=== PATIENT | male | born 1965 | race Native Hawaiian/Other Pacific Islander ===

== ENCOUNTER → 2019-09-23 | Outpatient (CLI) | payer OTHER ==
[~2019-09-23] MED LIST: CETI10TA17 PO; METO-370 PO
--- NOTE | 2019-09-23 13:35 | Diagnostic Imaging Report ---
INDICATION: Cough and shortness of breath FINDINGS: Abnormal mediastinal contour at the level of the aorticopulmonary window. This may reflect abnormal dilatation of the undivided pulmonary segment and main pulmonary artery. However soft tissue lesion owing to adenopathy or mass not excluded. Assuming the absence of a contraindication postcontrast enhanced chest CT recommended as nonemergent further evaluation. There is no failure pattern. There is no pneumonia. There is no effusion or pneumothorax. IMPRESSION: Abnormal mediastinal contour indeterminate between dilated pulmonary arterial trunk versus underlying mass or adenopathy. Contrast-enhanced chest CT as nonemergent outpatient follow-up recommended. Otherwise negative. Dictated by: Dictated on workstation # [id number]
== END ==
LOC: RAD 10:37
PROVIDERS: ATTEND Family Medicine
DX: R05 Cough (principal); R06.02 Shortness of breath
CPT/HCPCS: 71046

== ENCOUNTER → 2019-10-14 | Outpatient (CLI) | payer OTHER ==
[~2019-10-14] MED LIST changes: +CATHETER FLUSH 10 ML SYR IV PRN; +HOLD METFORMIN - RECEIVED CONTRAST 20 ML VIAL IV SCH; +IOHEXOL 350 MG/ML 100 ML (OMNIPAQUE 350) VIAL IV ONE; +NS 100 ML (IVPB) BAG IV ONE
[2019-10-14 11:08] LABS: BUN/CREATININE RATIO 16; CREATININE SERUM 1.16 MG/DL (0.60-1.30); GFR ESTIMATED > 60
--- NOTE | 2019-10-14 12:03 | Diagnostic Imaging Report ---
EXAMINATION: CT Chest with intravenous contrast. TECHNIQUE: Multiple contiguous axial images were obtained through the chest after the uneventful administration of intravenous contrast. All CT scans use one or more of the following dose optimizing techniques: automated exposure control, MA and/or KvP adjustment based on a patient size and exam type, or iterative reconstruction. HISTORY: ABN CXR COMPARISON: None available. FINDINGS: The radiographic abnormality corresponds to markedly dilated main pulmonary artery. The main pulmonary artery measures 5.6 x 4.7 cm. The lungs are clear without edema or pneumonia. No pleural effusion or pneumothorax. There is mild groundglass in the lingula, likely an inflammatory process. Heart size is normal. No pericardial effusion. Aorta is normal in caliber. There is no axillary or supraclavicular lymphadenopathy. There is no mediastinal lymphadenopathy. Limited views of the upper abdomen are unremarkable. There are no suspicious osseus lesions. IMPRESSION: 1. The radiographic abnormality corresponds to markedly dilated main pulmonary artery, likely representing pulmonary hypertension. 2. Mild groundglass in the lingula is likely inflammatory. Dictated by: Dictated on workstation # [id number]
== END ==
LOC: RAD 10:34
PROVIDERS: ATTEND Family Medicine
DX: R91.8 Other nonspecific abnormal finding of lung field (principal)
CPT/HCPCS: 36415; 71260; 82565; 84520

== ENCOUNTER → 2019-12-24 | Outpatient (CLI) | payer OTHER ==
[~2019-12-24] MED LIST changes: -CATHETER FLUSH 10 ML SYR IV PRN; -HOLD METFORMIN - RECEIVED CONTRAST 20 ML VIAL IV SCH; -IOHEXOL 350 MG/ML 100 ML (OMNIPAQUE 350) VIAL IV ONE; -METO-370 PO; +METO50TA7 PO; -NS 100 ML (IVPB) BAG IV ONE; +RT-ALBUTEROL SULF 2.5 MG/3 ML PRE-MIX VIAL INH ONE
== END ==
LOC: RT 09:18
PROVIDERS: ATTEND Family Medicine
DX: J98.8 Other specified respiratory disorders (principal)
CPT/HCPCS: 94060; 94726; 94729

== ENCOUNTER → 2020-01-26 | Outpatient (CLI) | payer OTHER ==
[~2020-01-26] MED LIST changes: -RT-ALBUTEROL SULF 2.5 MG/3 ML PRE-MIX VIAL INH ONE
--- NOTE | 2020-01-26 11:14 | Diagnostic Imaging Report ---
INDICATION: Rectal pain and swelling. COMPARISON: None available TECHNIQUE: 3 radiographs of right foot dated 01/26/2020 FINDINGS: No acute fracture or dislocation. No destructive osseous process. Mild scattered degenerative changes, greatest involving the 1st MTP joint. Lisfranc joint is well aligned. Moderate sized plantar and tiny posterior calcaneal enthesophytes. Punctate hyperdensities are identified just lateral to the 5th metatarsal head, only seen on the oblique radiograph. Mild diffuse soft tissue swelling of the foot. IMPRESSION: No acute osseous abnormality with mild scattered degenerative changes, greatest involving the 1st ray. Punctate hyperdensities lateral to the 5th metatarsal head seen on the oblique radiograph only. This is of uncertain significance. This may simply be artifactual, though this also relate to tiny foreign bodies or possibly punctate calcifications. Calcaneal enthesophytes. Soft tissue swelling involving the foot. Dictated by: Dictated on workstation # [id number]
== END ==
LOC: RAD 10:15
PROVIDERS: ATTEND Family Medicine
DX: M19.071 Primary osteoarthritis, right ankle and foot (principal); M77.8 Other enthesopathies, not elsewhere classified; K62.89 Other specified diseases of anus and rectum
CPT/HCPCS: 73630

== ENCOUNTER 2020-07-24 02:23 | Emergency (ER) | payer SELFPAY ==
[~2020-07-24] VITALS: Ht 165 cm; Wt 84.5 kg
[2020-07-24] MEDS ORDERED: DILT180C85 (02:42)
[2020-07-24] MEDS ORDERED: MTP100TCR (02:42)
[2020-07-24] MEDS ORDERED: ALBU8TAB (02:42)
[2020-07-24] MEDS ORDERED: HYDR12.56 (02:42)
[2020-07-24] MEDS ORDERED: hydrALAZINE (APESOLINE) 20 MG/ML VIAL IV ONE (03:00)
[2020-07-24 03:09] LABS: BASOPHILS # (AUTO) 0.1 10^3/uL (0.0-0.1); BASOPHILS % (AUTO) 1 % (0-10); EOSINOPHILS # (AUTO) 1.6 10^3/uL (0.0-0.3); EOSINOPHILS % (AUTO) 15 % (0-10); HEMATOCRIT 48 % (40-54); LYMPHOCYTES # (AUTO) 2.6 X 10^3 (1.0-4.0); LYMPHOCYTES % (AUTO) 25 % (12-44); MEAN CORPUSCULAR HEMOGLOBIN 30 PG (25-34); MEAN CORPUSCULAR HGB CONC 36 G/DL (32-36); MEAN CORPUSCULAR VOLUME 85 FL (80-99); MEAN PLATELET VOLUME 9.1 FL (7.4-10.4); MONOCYTES # (AUTO) 0.8 X 10^3 (0.0-1.0); MONOCYTES % (AUTO) 7 % (0-12); NEUTROPHILS # (AUTO) 5.5 X 10^3 (1.8-7.8); NEUTROPHILS % (AUTO) 52 % (42-75); PLATELET COUNT 174 10^3/uL (130-400); WHITE BLOOD COUNT 10.5 10^3/uL (4.3-11.0)
--- NOTE | 2020-07-24 03:19 | ED General ---
General Chief Complaint: Respiratory Problems Stated Complaint: SOB Nursing Triage Note: soa when laying down x1 week. worse tonight. Nursing Sepsis Screen: No Definite Risk Source of Information: Patient Exam Limitations: No Limitations History of Present Illness Date Seen by Provider: Jul 24, 2020 Time Seen by Provider: 02:48 Initial Comments Here with report of shortness of breath that is worse when lying down and better after inhaler. Has history of asthma and high blood pressure. Has had recent addition to his blood pressure medicine and is getting moderate control. Arrives tonight with or significant hypertension and wheezing. Denies contact with COVID patients. Denies sore throat, runny nose or fever but does have cough. Has been using his inhaler in the morning and evening. States that helps a little bit. Denies nausea, vomiting or diarrhea. Timing/Duration: 1 Week, Changing Over Time Severity: Moderate Modifying Factors: improves with Medication (albuterol) Associated Systoms: No Chest Pain; Cough, Fever/Chills; No Nausea/Vomiting; Shortness of Air; No Weakness Allergies and Home Medications Allergies Uncoded Allergies: ENVIRONMENTAL (Allergy, Unknown, 07/24/15) Patient Home Medication List Home Medication List Reviewed: Yes Review of Systems Review of Systems Constitutional: see HPI; No chills, No fever EENTM: no symptoms reported Respiratory: see HPI Cardiovascular: No chest pain, No edema Gastrointestinal: No abdominal pain, No nausea, No vomiting Genitourinary: no symptoms reported Musculoskeletal: no symptoms reported All Other Systems Reviewed Negative Unless Noted: Yes Past Wiyjtgx-Cjdtrl-Dtuxii Hx Past Med/Social Hx: Reviewed Nursing Past Med/Soc Hx Patient Social History Alcohol Use: Denies Use Recreational Drug Use: No Smoking Status: Never a Smoker 2nd Hand Smoke Exposure: No Recent Foreign Travel: No Contact w/Someone Who Travel: No Recent Infectious Disease Expo: No Recent Hopitalizations: No Immunizations Up To Date Tetanus Booster (TDap): Unknown Seasonal Allergies Seasonal Allergies: No Past Medical History Surgeries: No Respiratory: Yes Asthma Cardiac: Yes Atrial Fibrillation, Hypertension Neurological: No Reproductive Disorders: No Sexually Transmitted Disease: No Genitourinary: No Gastrointestinal: No Musculoskeletal: No Endocrine: No HEENT: No Cancer: No Psychosocial: No Integumentary: No Blood Disorders: No Family Medical History Reviewed Nursing Family Hx Physical Exam Vital Signs Vital Signs - First Documented 07/24/20 02:31 Temp 36.2 Pulse 77 Resp 18 B/P (MAP) 194/123 (146) Pulse Ox 97 O2 Delivery Room Air Capillary Refill : Less Than 3 Seconds Height, Weight, BMI Height: 5'4" Weight: 212lbs. oz. 96.383826by; 31.00 BMI Method: General Appearance: No Apparent Distress, WD/WN HEENT: PERRL/EOMI, Pharynx Normal Neck: Non Tender, Supple Respiratory: No Respiratory Distress; No Crackles; Expiration Cardiovascular: Regular Rate, Rhythm, No Murmur Gastrointestinal: Non Tender, Soft Back: Normal Inspection, No CVA Tenderness, No Vertebral Tenderness Extremity: Normal Inspection, Normal Range of Motion, Non Tender, No Calf Tenderness Neurologic/Psychiatric: Alert, Oriented x3 Skin: Normal Color, Warm/Dry Progress/Results/Core Measures Suspected Sepsis Recent Fever Within 48 Hours: No Infection Criteria Present: None New/Unexplained Altered Menta: No Sepsis Screen: No Definite Risk SIRS Temperature: Pulse: 77 Respiratory Rate: 18 Laboratory Tests 07/24/20 02:55: White Blood Count 10.5 Blood Pressure 194 /123 Mean: 146 Laboratory Tests 07/24/20 02:55: Creatinine 1.27, Platelet Count 174, Total Bilirubin 0.8 Results/Orders Lab Results Laboratory Tests Test 07/24/20 02:55 07/24/20 04:56 Range/Units White Blood Count 10.5 4.3-11.0 10^3/uL Red Blood Count 5.63 4.35-5.85 10^6/uL Hemoglobin 17.0 13.3-17.7 G/DL Hematocrit 48 40-54 % Mean Corpuscular Volume 85 80-99 FL Mean Corpuscular Hemoglobin 30 25-34 PG Mean Corpuscular Hemoglobin Concent 36 32-36 G/DL Red Cell Distribution Width 14.1 10.0-14.5 % Platelet Count 174 130-400 10^3/uL Mean Platelet Volume 9.1 7.4-10.4 FL Neutrophils (%) (Auto) 52 42-75 % Lymphocytes (%) (Auto) 25 12-44 % Monocytes (%) (Auto) 7 0-12 % Eosinophils (%) (Auto) 15 H 0-10 % Basophils (%) (Auto) 1 0-10 % Neutrophils # (Auto) 5.5 1.8-7.8 X 10^3 Lymphocytes # (Auto) 2.6 1.0-4.0 X 10^3 Monocytes # (Auto) 0.8 0.0-1.0 X 10^3 Eosinophils # (Auto) 1.6 H 0.0-0.3 10^3/uL Basophils # (Auto) 0.1 0.0-0.1 10^3/uL Sodium Level 137 135-145 MMOL/L Potassium Level 3.3 L 3.6-5.0 MMOL/L Chloride Level 102 98-107 MMOL/L Carbon Dioxide Level 24 21-32 MMOL/L Anion Gap 11 5-14 MMOL/L Blood Urea Nitrogen 19 H 7-18 MG/DL Creatinine 1.27 0.60-1.30 MG/DL Estimat Glomerular Filtration Rate 60 BUN/Creatinine Ratio 15 Glucose Level 87 70-105 MG/DL Calcium Level 9.1 8.5-10.1 MG/DL Corrected Calcium 9.0 8.5-10.1 MG/DL Total Bilirubin 0.8 0.1-1.0 MG/DL Aspartate Amino Transf (AST/SGOT) 28 5-34 U/L Alanine Aminotransferase (ALT/SGPT) 24 0-55 U/L Alkaline Phosphatase 111 40-136 U/L Troponin I 0.054 H 0.041 H <0.028 NG/ML C-Reactive Protein High Sensitivity 0.58 H 0.00-0.50 MG/DL B-Type Natriuretic Peptide 13.6 <100.0 PG/ML Total Protein 8.5 H 6.4-8.2 GM/DL Albumin 4.1 3.2-4.5 GM/DL My Orders Orders - MARYCRUZ ANDERSON MD Ed Iv/Invasive Line Start (07/24/20 02:54) Ekg Tracing (07/24/20 02:54) BNP (07/24/20 02:54) Cbc With Automated Diff (07/24/20 02:54) Comprehensive Metabolic Panel (07/24/20 02:54) Hs C Reactive Protein (07/24/20 02:54) Troponin I (07/24/20 02:54) Chest 1 View, Ap/Pa Only (07/24/20 02:54) Hydralazine Injection (Apresoline Inject (07/24/20 03:00) Ns Iv 500 Ml (Sodium Chloride 0.9%) (07/24/20 03:48) Troponin I (07/24/20 04:41) Medications Given in ED Current Medications Medications Dose Ordered Sig/Verna Route Start Time Stop Time Status Last Admin Dose Admin Hydralazine HCl 10 mg ONCE ONCE IV 07/24/20 03:00 07/24/20 03:01 DC 07/24/20 03:07 10 MG Sodium Chloride 500 ml @ [facility] ONCE .ROUTE 07/24/20 03:48 07/24/20 03:53 DC 07/24/20 03:55 999 MLS/HR Vital Signs/I&O 07/24/20 02:31 Temp 36.2 Pulse 77 Resp 18 B/P (MAP) 194/123 (146) Pulse Ox 97 O2 Delivery Room Air Capillary Refill : Less Than 3 Seconds Blood Pressure Mean: 146 Progress Note : Progress Note Seen and evaluated. IV, labs, EKG and chest x-ray ordered. I did have patient do 2 puffs from his personal albuterol inhaler. He showed his technique on the procedure, which was incorrect. 2 more doses done after teaching and coaching. States this does help. Patient did receive hydralazine 10 mg IV for blood pressure elevated 210/120. Monitor patient. 0400: Blood pressure now better although did dip to 90 systolic. Normal saline 500 mL bolus ordered. Troponin slightly bumped which I believe is related to the hypertensive event. We will recheck at the two-hour julio c. Monitor patient. 0540: Repeat troponin done and is declining. The troponin not significant level but patient does need further workup study which can be done outpatient. He does follow with Dr. Gutierrez. I have instructed him to follow-up on Sunday for recheck and further evaluation and to rediscuss blood pressure. He will monitor and record blood pressure twice daily. Patient did have recent change to stop lisinopril due to coughing. He may need further adjustments. Patient does not have nor has had any chest pain. He feels comfortable going home. Discharged home with return precautions. Patient verbalize understanding instructions and agreement with plan. ECG Initial ECG Impression Date: Jul 24, 2020 Initial ECG Impression Time: 02:58 Initial ECG Rate: 65 Initial ECG Rhythm: Normal Sinus Comment Sinus rhythm with normal axis. No evidence of ST elevation PA. Similar previous. Interpreted by me. Diagnostic Imaging Diagonstic Imaging: Xray Plain Films/CT/US/NM/MRI: chest Comments No acute findings when compared to previous x-ray. Departure Impression Primary Impression: Uncontrolled hypertension Additional Impression: Asthma Qualified Codes: J45.20 - Mild intermittent asthma, uncomplicated Disposition: HOME, SELF-CARE Condition: Improved Departure-Patient Inst. Decision time for Depature: 05:44 Referrals: EMELI GUTIERREZ MD (PCP/Family) Primary Care Physician RIGOBERTO MUNGUIA MD Patient Instructions: High Blood Pressure (DC), Asthma in Adults Add. Discharge Instructions: All discharge instructions reviewed with patient and/or family. Voiced understanding. Use inhaler 2 puffs every 4 hours as needed for shortness of breath or wheezing. Continue home medications as previously prescribed. Follow-up with Dr. Guteirrez for recheck and further evaluation on Sunday. Call his office Sunday morning. You may need further blood pressure medicine adjustments. You should also talk with him about referral to cardiology and or setting up cardiac stress test. Return for worse pain, fever, vomiting, weakness, breathing problems, chest pain, dizziness, sweating or other concerns as needed. You should monitor and record your blood pressure twice daily and take this to your doctor's appointment. Copy Copies To 1: EMELI GUTIERREZ MD, TIMOTHY D MD Jul 24, 2020 03:18
[2020-07-24 03:20] LABS: ALBUMIN 4.1 GM/DL (3.2-4.5); POTASSIUM 3.3 MMOL/L (3.6-5.0)
[2020-07-24 03:21] LABS: CALCIUM 9.1 MG/DL (8.5-10.1)
[2020-07-24 03:22] LABS: TOTAL PROTEIN 8.5 GM/DL (6.4-8.2)
[2020-07-24 03:24] LABS: BILIRUBIN,TOTAL 0.8 MG/DL (0.1-1.0)
[2020-07-24 03:26] LABS: CREATININE SERUM 1.27 MG/DL (0.60-1.30)
[2020-07-24] MEDS ORDERED: NS IV 500 ML 500 ML ONE (03:48)
[2020-07-24 05:47] VITALS: BP 141/84
--- NOTE | 2020-07-24 07:46 | Diagnostic Imaging Report ---
Indication: Dyspnea. Comparison: 09/23/[address] plain film and chest CT 10/14/2019. Discussion: Single portable upright view of the chest was obtained. Pulmonary artery hypertension is again noted. Normal heart size. No consolidation, pleural fluid, or pneumothorax. No osseous abnormality. Impression: 1. No acute cardiopulmonary process Dictated by: Dictated on workstation # [id number]
== END 2020-07-24 05:47 | disposition home or self-care (01) ==
LOC: EDUNIT# 02:23 → ER 02:25
DX: I10 Essential (primary) hypertension (principal); J45.909 Unspecified asthma, uncomplicated
CPT/HCPCS: 36415; 71045; 80053; 83880; 84484; 85025; 86141; 93005

== ENCOUNTER 2021-07-27 17:22 | Emergency (ER) | payer SELFPAY ==
[~2021-07-27 17:22] MED LIST changes: +ALBU8TAB; +DILT180C85; +HYDR12.56; +MTP100TCR
[2021-07-27] MEDS: RT-ALBUTEROL/IPRATROPIUM 3 ML (DUONEB) VIAL INH ONE (18:45)
--- NOTE | 2021-07-27 18:55 | Diagnostic Imaging Report ---
INDICATION: Cough and shortness of breath Frontal chest obtained at 0627 p.m. and compared to 07/24/2020. Heart is mildly enlarged. The thoracic aorta is tortuous and/or ectatic, but appeared similar on the previous study. There is no focal infiltrate or pneumothorax or pleural fluid. IMPRESSION: Cardiomegaly with tortuous and/or ectatic aorta. No focal infiltrate or pneumothorax or pleural fluid. Dictated by: Dictated on workstation # [id number]
[2021-07-27] MEDS: RX-ALBUTEROL NEB 2.5 MG/3 ML PACK #5 IH STA (19:59)
[2021-07-27] MEDS: predniSONE 20 MG TAB PO ONE (19:59)
--- NOTE | 2021-07-27 20:44 | ED Respiratory ---
General Chief Complaint: Respiratory Problems Stated Complaint: SOB, COUGH Source: patient Exam Limitations: no limitations History of Present Illness Date Seen by Provider: Jul 27, 2021 Time Seen by Provider: 18:26 Initial Comments This 55-year-old gentleman with asthma presents to the emergency room with complaints of shortness of breath, chest tightness, and right lateral lower chest wall pain with cough and inspiration. This has been ongoing for about 3 d ays. He denies fever. He has been vaccinated for Covid. He uses a maintenance inhaler twice a day and a rescue albuterol inhaler. He has had to be on steroids multiple times in the past for asthma exacerbations. He is notably hypertensive. Allergies and Home Medications Allergies Uncoded Allergies: ENVIRONMENTAL (Allergy, Unknown, 07/24/15) Patient Home Medication List Home Medication List Reviewed: Yes Albuterol Sulfate (Albuterol Sulfate) 8 Mg Tab.er.12h, (Reported) Entered as Reported by: YUNI ELLSWORTH on 07/24/20241 Diltiazem HCl (Diltiazem 24Hr ER) 180 Mg Cap.er.24h, (Reported) Entered as Reported by: YUNI ELLSWORTH on 07/24/20241 Hydrochlorothiazide (Hydrochlorothiazide) 12.5 Mg Tablet, (Reported) Entered as Reported by: YUNI ELLSWORTH on 07/24/20241 Ipratropium/Albuterol Sulfate (Iprat-Albut 0.5-3(2.5) mg/3 ml) 3 Ml Ampul.neb, 3 ML IH Q4H PRN for SHORTNESS OF BREATH Prescribed by: VICTOR MANUEL WALKER on 07/27/212044 Metoprolol Succinate (Metoprolol Succinate) 100 Mg Tab.er.24h, (Reported) Entered as Reported by: YUNI ELLSWORTH on 07/24/20241 Prednisone (Prednisone) 20 Mg Tab, 40 MG PO DAILY Prescribed by: VICTOR MANUEL WALKER on 07/27/212044 Review of Systems Review of Systems Constitutional: no symptoms reported EENTM: no symptoms reported Respiratory: see HPI Cardiovascular: see HPI Gastrointestinal: no symptoms reported Genitourinary: no symptoms reported Musculoskeletal: no symptoms reported Skin: no symptoms reported Psychiatric/Neurological: No Symptoms Reported Hematologic/Lymphatic: No Symptoms Reported Past Cjwdwtx-Rbbaip-Ynvoix Hx Patient Social History Tobacco Use?: No Use of E-Cig and/or Vaping dev: No Substance use?: No Alcohol Use?: No Immunizations Up To Date Tetanus Booster (TDap): Unknown Seasonal Allergies Seasonal Allergies: No Past Medical History Surgeries: No Respiratory: Yes Asthma Cardiac: Yes Atrial Fibrillation, Hypertension Neurological: No Reproductive Disorders: No Sexually Transmitted Disease: No Genitourinary: No Gastrointestinal: No Musculoskeletal: No Endocrine: No HEENT: No Cancer: No Psychosocial: No Integumentary: No Blood Disorders: No Physical Exam Vital Signs - First Documented 07/27/21 18:23 Temp 36.6 Pulse 82 Resp 20 B/P (MAP) 175/111 (132) Pulse Ox 95 O2 Delivery Room Air Capillary Refill : Height: 5'4" Weight: 212lbs. oz. 96.110437mp; 31.00 BMI Method: General Appearance: WD/WN, no apparent distress HEENT: PERRL/EOMI, normal ENT inspection, pharynx normal Neck: normal inspection Respiratory: no respiratory distress, no accessory muscle use, decreased breath sounds; No crackles; wheezing, other (Right lower lateral chest wall tender to palpation) Cardiovascular: regular rate, rhythm, no edema, no murmur Gastrointestinal: non tender, soft Extremities: normal inspection, no pedal edema Neurologic/Psychiatric: cold roll catcher II-XII nml as tested, no motor/sensory deficits, alert, normal mood/affect, oriented x 3 Skin: normal color, warm/dry; No rash Progress/Results/Core Measures Suspected Sepsis SIRS Temperature: Pulse: Respiratory Rate: Blood Pressure / Mean: Results/Orders Lab Results Laboratory Tests Test 07/27/21 18:35 Range/Units Influenza Type A Antigen NEGATIVE NEGATIVE Influenza Type B Antigen NEGATIVE NEGATIVE My Orders Orders - VICTOR MANUEL SMITH MD Albuterol/Ipra Inhalation Soln (Duoneb I (07/27/21 18:45) Svn Small Volume Nebulizer (07/27/21 18:40) Coronavirus Sars-Cov-2 So 2018 (07/27/21 18:41) Influenza A & B Antigens (07/27/21 18:35) Rx-Albuterol Nebs (Rx-Proventil Nebs) (07/27/21 19:22) Prednisone Tablet (Deltasone Tablet) (07/27/21 19:30) Medications Given in ED Vital Signs/I&O 07/27/21 07/27/21 18:23 21:15 Temp 36.6 36.6 Pulse 82 77 Resp 20 16 B/P (MAP) 175/111 (132) 162/107 Pulse Ox 95 96 O2 Delivery Room Air Room Air Capillary Refill : Progress Note : Progress Note Chest x-ray was unremarkable. Patient noted significant improvement with a DuoNeb treatment. Rapid flu was negative. Covid test is pending. Prednisone was given for treatment of asthma exacerbation. A nebulizer was dispensed along with albuterol vials. See discharge instructions. Diagnostic Imaging Diagonstic Imaging: Xray Plain Films/CT/US/NM/MRI: chest Comments NAME: MARLY PARRA [facility] REC#: [id number] PT STATUS: REG ER : 1965 PHYSICIAN: MONICA CUNHA APRN ADMIT DATE: 07/27/21/ER Signed Date of Exam:07/27/21 CHEST 1 VIEW, AP/PA ONLY INDICATION: Cough and shortness of breath Frontal chest obtained at 0627 p.m. and compared to 07/24/2020. Heart is mildly enlarged. The thoracic aorta is tortuous and/or ectatic, but appeared similar on the previous study. There is no focal infiltrate or pneumothorax or pleural fluid. IMPRESSION: Cardiomegaly with tortuous and/or ectatic aorta. No focal infiltrate or pneumothorax or pleural fluid. Dictated by: Dictated on workstation # [id number] Dict: 07/27/211850 Trans: 07/27/211856 [facility] [id number] Interpreted by: ALFRED PAN MD Electronically signed by: ALFRED PAN MD 07/27/211856 Departure Impression Primary Impression: Asthma exacerbation Qualified Codes: J45.901 - Unspecified asthma with (acute) exacerbation Additional Impressions: Chest wall pain High blood pressure Qualified Codes: I10 - Essential (primary) hypertension Person under investigation for COVID-19 Disposition: 01 HOME, SELF-CARE Condition: Improved Departure-Patient Inst. Decision time for Depature: 20:39 Referrals: EMELI GUTIERREZ MD (PCP/Family) Primary Care Physician Patient Instructions: Asthma in Adults, COVID-19 Overview, High Blood Pressure ED, COVID-19 After You Have Been Vaccinated Add. Discharge Instructions: Your influenza test was negative, but the result of your COVID-19 test will not be available for 24 to 48 hours. The results should hopefully be available tomorrow. If you do not hear from us by end of day tomorrow, feel free to call to obtain the result. Remain in isolation until the results of your COVID-19 test is known. Use prednisone as prescribed to help treat your asthma. This may cause some sleep disturbance so take it early in the day if possible. Also take with food or milk to avoid stomach upset. Continue to use your maintenance inhaler twice a day as previously prescribed. You may use the nebulizer every 4 hours as needed for shortness of air and wheezing. You may alternatively use your albuterol inhaler up to 4 puffs in a 4-hour period of time if your nebulizer machine is not available. Follow-up with your primary care provider soon as possible to reevaluate your asthma and your high blood pressure. Continue taking your medications until then. Please call tomorrow morning to arrange the appointment. Please return to the emergency room if you have worsening symptoms despite following these instructions. The prednisone should help with your chest pain. You may additionally take ibuprofen up to 600 mg every 6 hours and/or Tylenol (acetaminophen) up to 1000 mg every 6 hours as needed for uncontrolled pain. Ibuprofen should only be used for short-term relief of pain and not as a chronic medication. Call with questions or concerns. All discharge instructions reviewed with patient and/or family. Voiced understanding. Scripts Ipratropium/Albuterol Sulfate (Iprat-Albut 0.5-3(2.5) mg/3 ml) 3 Ml Ampul.neb 3 ML IH Q4H PRN for SHORTNESS OF BREATH, #50 EACH Prov: VICTOR MANUEL SMITH MD 07/27/21 Prednisone (Prednisone) 20 Mg Tab 40 MG PO DAILY, #8 TAB 0 Refills Prov: VICTOR MANUEL SMITH MD 07/27/21 Work/School Note: Work Release Form Date Seen in the Emergency Department: Jul 27, 2021 Return to Work: Jul 29, 2021 Other Restrictions Listed Below: May return to work if COVID-19 test is negative. Copy Copies To 1: EMELI GUTIERREZ MD, JOSHUA T MD Jul 27, 2021 20:44
[2021-07-27] MEDS ORDERED: PRD20T PO (20:45)
[2021-07-27] MEDS ORDERED: IPRA3AMP31 IH (20:45)
[2021-07-27 21:15] VITALS: BP 162/107
== END 2021-07-27 21:05 | disposition home or self-care (01) ==
LOC: EDUNIT# 17:22 → ER 17:27
DX: J45.901 Unspecified asthma with (acute) exacerbation (principal); R07.89 Other chest pain; I10 Essential (primary) hypertension; Z20.822 Contact with and (suspected) exposure to COVID-19
CPT/HCPCS: 71045; 87635; 87804

== ENCOUNTER 2022-03-10 20:41 | Emergency (ER) | payer SELFPAY ==
[~2022-03-10] VITALS: Ht 165.1 cm; Wt 95.3 kg
[~2022-03-10 20:41] MED LIST changes: +IPRA3AMP31 IH; +PRD20T PO
--- NOTE | 2022-03-10 23:03 | ED Cardiac General ---
History of Present Illness General Chief Complaint: Cardiac/General Problems Stated Complaint: BP IS HIGH Nursing Triage Note: PT AMBULATORY INTO ER WITH COMPLAINT OF HYPERTENSION, AND PAIN IN LEFT CALF TODAY. PT STATES THAT HE TAKES TWO BLOOD PRESSURE MEDICATIONS OF A MORNING, AND MONITORS HER BLOOD PRESSURE WHEN HE FEELS TIRED. PT STATES THAT IT WAS 160'S TODAY, AND WITH THE PAIN IN THE CALF HE WAS WORRIED ABOUT A BLOOD CLOT. 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 He was given some steroids by Dr. Morales for his foot but have not helped much. He is not having any chest pain shortness of air or exertional dyspnea. He does not follow with a woodworking belt sander. Does not have a history of coronary disease. He says when he was a young child he had to go to [place] to have a surgery for his heart where they went in through his right groin. He does not member what the surgery was. He is not on blood thinners. Allergies and Home Medications Allergies Uncoded Allergies: ENVIRONMENTAL (Allergy, Unknown, 07/24/15) Patient Home Medication List Home Medication List Reviewed: Yes Albuterol Sulfate (Albuterol Sulfate) 8 Mg Tab.er.12h, (Reported) Entered as Reported by: YUNI ELLSWORTH on 07/24/20241 Diltiazem HCl (Diltiazem 24Hr ER) 180 Mg Cap.er.24h, (Reported) Entered as Reported by: YUNI ELLSWORTH on 07/24/20241 Hydrochlorothiazide (Hydrochlorothiazide) 12.5 Mg Tablet, (Reported) Entered as Reported by: YUNI ELLSWORTH on 07/24/20241 Ipratropium/Albuterol Sulfate (Iprat-Albut 0.5-3(2.5) mg/3 ml) 3 Ml Ampul.neb, 3 ML IH Q4H PRN for SHORTNESS OF BREATH Prescribed by: VICTOR MANUEL WALKER on 07/27/212044 Metoprolol Succinate (Metoprolol Succinate) 100 Mg Tab.er.24h, (Reported) Entered as Reported by: YUNI ELLSWORTH on 07/24/20 0242 Prednisone (Prednisone) 20 Mg Tab, 40 MG PO DAILY Prescribed by: VICTOR MANUEL WALKER on 07/27/212044 Review of Systems Review of Systems Constitutional: No chills, No diaphoresis EENTM: No Blurred Vision, No Double Vision Respiratory: Denies Cough, Denies Shortness of Air Cardiovascular: Denies Chest Pain, Denies Lightheadedness Gastrointestinal: Denies Constipated, Denies Diarrhea Genitourinary: Denies Discharge, Denies Drainage Musculoskeletal: see HPI; No back pain; joint pain Skin: No change in color, No rash All Other Systems Reviewed Negative Unless Noted: Yes Past Ekwmntx-Xrqnuy-Odhieo Hx Patient Social History Tobacco Use?: No Use of E-Cig and/or Vaping dev: No Substance use?: No Alcohol Use?: No Pt feels they are or have been: No Immunizations Up To Date Tetanus Booster (TDap): Unknown Influenza Vaccine Up-to-Date: No; Not Current First/Initial COVID19 Vaccinat: FEBRUARY 2021 Second COVID19 Vaccination Conrad: FEBRUARY 2021 Third COVID19 Vaccination Date: FEBRUARY 2021 COVID19 Vaccine Manual Arts Therapist: [place] Seasonal Allergies Seasonal Allergies: No Past Medical History Surgery/Hospitalization HX: MED HX: HTN Surgeries: No Respiratory: Yes Asthma Cardiac: Yes Atrial Fibrillation, Hypertension Neurological: No Reproductive Disorders: No Sexually Transmitted Disease: No Genitourinary: No Gastrointestinal: No Musculoskeletal: No Endocrine: No HEENT: No Cancer: No Psychosocial: No Integumentary: No Blood Disorders: No Physical Exam Vital Signs Vital Signs - First Documented 03/10/22 22:20 Temp 36.8 Pulse 84 Resp 16 B/P (MAP) 188/109 (135) Pulse Ox 98 O2 Delivery Room Air Capillary Refill : Less Than 3 Seconds Height, Weight, BMI Height: 5'4" Weight: 212lbs. oz. 96.295432br; 34.00 BMI Method: General Appearance: No Apparent Distress, WD/WN HEENT: PERRL/EOMI, Pharynx Normal, Moist Mucous Membranes Neck: Full Range of Motion, Normal Inspection Respiratory: Lungs Clear, Normal Breath Sounds, No Accessory Muscle Use, No Respiratory Distress Cardiovascular: Regular Rate, Rhythm, No Edema, Normal Peripheral Pulses Gastrointestinal: Normal Bowel Sounds, No Organomegaly, Non Tender, Soft Extremity: Normal Capillary Refill, Normal Inspection, Normal Range of Motion Neurologic/Psychiatric: Alert, Oriented x3, No Motor/Sensory Deficits, Normal Mood/Affect, machinist mate II-XII Norm as Tested Progress/Results/Core Measures Results/Orders Lab Results Laboratory Tests Test 03/10/22 23:25 03/11/22 02:43 Range/Units White Blood Count 8.7 4.3-11.0 10^3/uL Red Blood Count 5.57 H 4.30-5.52 10^6/uL Hemoglobin 16.3 13.3-17.7 g/dL Hematocrit 49 40-54 % Mean Corpuscular Volume 88 80-99 fL Mean Corpuscular Hemoglobin 29 25-34 pg Mean Corpuscular Hemoglobin Concent 33 32-36 g/dL Red Cell Distribution Width 13.3 10.0-14.5 % Platelet Count 204 130-400 10^3/uL Mean Platelet Volume 8.9 L 9.0-12.2 fL Immature Granulocyte % (Auto) 1 % Neutrophils (%) (Auto) 59 42-75 % Lymphocytes (%) (Auto) 21 12-44 % Monocytes (%) (Auto) 9 0-12 % Eosinophils (%) (Auto) 10 0-10 % Basophils (%) (Auto) 1 0-10 % Neutrophils # (Auto) 5.1 1.8-7.8 10^3/uL Lymphocytes # (Auto) 1.8 1.0-4.0 10^3/uL Monocytes # (Auto) 0.8 0.0-1.0 10^3/uL Eosinophils # (Auto) 0.9 H 0.0-0.3 10^3/uL Basophils # (Auto) 0.1 0.0-0.1 10^3/uL Immature Granulocyte # (Auto) 0.1 0.0-0.1 10^3/uL Prothrombin Time 13.6 12.2-14.7 SEC INR Comment 1.0 0.8-1.4 Activated Partial Thromboplast Time 38 H 24-35 SEC D-Dimer 0.09 0.00-0.49 UG/ML Sodium Level 142 135-145 MMOL/L Potassium Level 3.9 3.6-5.0 MMOL/L Chloride Level 105 98-107 MMOL/L Carbon Dioxide Level 20 L 21-32 MMOL/L Anion Gap 17 H 5-14 MMOL/L Blood Urea Nitrogen 28 H 7-18 MG/DL Creatinine 1.34 H 0.60-1.30 MG/DL Estimat Glomerular Filtration Rate 63 BUN/Creatinine Ratio 21 Glucose Level 114 H 70-105 MG/DL Calcium Level 8.9 8.5-10.1 MG/DL Corrected Calcium 9.2 8.5-10.1 MG/DL Magnesium Level 2.1 1.6-2.4 MG/DL Total Bilirubin 0.5 0.1-1.0 MG/DL Aspartate Amino Transf (AST/SGOT) 26 5-34 U/L Alanine Aminotransferase (ALT/SGPT) 36 0-55 U/L Alkaline Phosphatase 95 40-136 U/L Myoglobin 125.5 H 10.0-92.0 NG/ML Troponin I 0.042 H 0.040 H <0.028 NG/ML B-Type Natriuretic Peptide < 10.0 <100.0 PG/ML Total Protein 7.1 6.4-8.2 GM/DL Albumin 3.6 3.2-4.5 GM/DL My Orders Orders - HAILEY,WILFREDO J Cbc With Automated Diff (03/10/22 22:59) Magnesium (03/10/22 22:59) Chest 1 View, Ap/Pa Only (03/10/22 22:59) Ekg Tracing (03/10/22 22:59) Comprehensive Metabolic Panel (03/10/22 22:59) Myoglobin Serum (03/10/22 22:59) Protime With Inr (03/10/22 22:59) Partial Thromboplastin Time (03/10/22 22:59) O2 (03/10/22 22:59) Monitor-Rhythm Ecg Trace Only (03/10/22 22:59) Ed Iv/Invasive Line Start (03/10/22 22:59) Bnp Min (03/10/22 22:59) Fibrin Degradation Products (03/10/22 23:25) Troponin I [place] (03/10/22 23:25) Labetalol Injection (Normodyne Injection (03/11/22 00:15) Troponin I [place] (03/11/22 03:00) Ketorolac Injection (Toradol Injection) (03/11/22 03:45) Medications Given in ED Vital Signs/I&O 03/10/22 03/11/22 22:20 03:51 Temp 36.8 Pulse 84 65 Resp 16 18 B/P (MAP) 188/109 (135) 160/105 Pulse Ox 98 98 O2 Delivery Room Air Room Air Blood Pressure Mean: 135 Progress Progress Note #1: Time: 23:12 Progress Note I suspect that the patient's use of steroids for his likely plantar fasciitis in his right foot has led to elevated blood pressure in addition to his pain. The left knee is probably hurting because he has been walking funny on his right foot. He says his shoes are old. We have recommended him to a bottom brusher to get orthotics placed. We have also recommended him to get good fitting shoes. His blood pressure has already slipped down to 158/97 while at rest. He is not having any other difficulties but since he is on hydrochlorothiazide we will check some labs. He was also concerned that he might have some pain in his right calf from a DVT. He does not have a history of blood clots. Will obtain a D-dimer. The pain in his calf is probably from his altered gait due to his foot pain. He does not have any other evidence of DVT. Progress Note #2: Time: 00:21 Progress Note The patient is resting quietly when this provider entered the room and states he does not feel any different now than it did before. His troponin is marginally elevated at 0.042. Reviewing the case from 2019 he had a similar incident when he came in for an asthma attack with a troponin of 0.05 but trended down to 0.04. This may be his baseline. Our plan would be to wait 4 hours from the initial troponin, recheck it and if it is going down or staying the same have him follow-up next week with cardiology. If it is going up then we will get him plugged in with a woodworking belt sander in the morning. He is not having any chest pain or shortness of air at this time. His blood pressure has fluctuated around 140- 160 and is now 166/99. We are going to give him some labetalol and observe him. He is okay with this plan. Progress Note #3: Time: 03:25 Progress Note Repeat troponin has not changed. He had a similar incident back in 2020. He is not having any chest pain. His blood pressure is 134/75. We are going to have him follow-up outpatient. Initial ECG Impression Date: March 11, 2022 Initial ECG Impression Time: 00:05 Initial ECG Rate: 66 Initial ECG Rhythm: Normal Sinus Initial ECG Intervals: Normal Initial ECG Impression: Normal Initial ECG Comparisson: Unchanged Comment Normal sinus rhythm with half a block of ST elevation in V2 and V3 of uncertain significance. No clinically relevant ST elevation or depression. The same changes were seen on an EKG from 2020. Diagnostic Imaging Diagonstic Imaging: Xray Plain Films/CT/US/NM/MRI: chest Comments Perhaps a wisp of infiltrate versus atelectasis on the right lower base however otherwise unremarkable looking chest x-ray compared to previous x-ray in 2020. [facility], [place] NAME: MARLY PARRA [facility] REC#: [id number] PT STATUS: DEP ER : 1965 PHYSICIAN: WILFREDO HART MD ADMIT DATE: 03/10/22/ER Signed Date of Exam:03/10/22 CHEST 1 VIEW, AP/PA ONLY HISTORY: Chest pain TECHNIQUE: Frontal view of the chest COMPARISON: 07/27/2021 FINDINGS: Lung volumes are mildly large. There is increased airspace opacity in the right lung base compared to the prior exam. There is no pleural effusion or pneumothorax. The cardiac silhouette is stable in size. IMPRESSION: 1. Mildly increased airspace opacity at the right lung base compared to the prior study. This may be due to atelectasis or infiltrate. Dictated by: Dictated on workstation # [id number] Dict: 03/11/22 0604 Trans: 03/11/22 0959 MARTY [id number] Interpreted by: AMANDA CASTRO MD Electronically signed by: AMANDA CASTRO MD 03/11/22 0959 Reviewed: Reviewed by Me Departure Impression Primary Impression: Accelerated hypertension Additional Impressions: Elevated troponin level not due myocardial infarction Plantar fasciitis of right foot Left knee pain Qualified Codes: M25.562 - Pain in left knee Disposition: 01 HOME, SELF-CARE Condition: Stable Departure-Patient Inst. Decision time for Depature: 03:26 Referrals: JAEL STONE DPM, DANIEL J MD (PCP/Family) Primary Care Physician JAEL JEAN BAPTISTE JR, MD WILDE, CORIN Q DPM Patient Instructions: High Blood Pressure (DC), Troponin Test Add. Discharge Instructions: Continue taking your blood pressure medicines Follow-up with the woodworking belt sander by calling for an appointment in 2 to 4 weeks to help manage your blood pressure and discuss your risk for heart disease. Return to the ER for chest pain, shortness of air or other worrisome symptoms. Tylenol 1000 mg every 8 hours needed for pain in your foot. Ibuprofen 800 mg every 8 hours needed for pain. Follow the exercises listed in the handout for fat plantar fasciitis. Follow-up with a bottom brusher of your choice such as Dr. Stone or Dr Jerez to help manage your right foot pain All discharge instructions reviewed with patient and/or family. Voiced understanding. Copy Copies To 1: JAEL JEAN BAPTISTE JR, MD WELLER, TITUS J March 10, 2022 23:03
[2022-03-10 23:40] LABS: BASOPHILS # (AUTO) 0.1 10^3/uL (0.0-0.1); BASOPHILS % (AUTO) 1 % (0-10); EOSINOPHILS # (AUTO) 0.9 10^3/uL (0.0-0.3); EOSINOPHILS % (AUTO) 10 % (0-10); HEMATOCRIT 49 % (40-54); HEMOGLOBIN 16.3 g/dL (13.3-17.7); LYMPHOCYTES # (AUTO) 1.8 10^3/uL (1.0-4.0); LYMPHOCYTES % (AUTO) 21 % (12-44); MEAN CORPUSCULAR HEMOGLOBIN 29 pg (25-34); MEAN CORPUSCULAR HGB CONC 33 g/dL (32-36); MEAN CORPUSCULAR VOLUME 88 fL (80-99); MEAN PLATELET VOLUME 8.9 fL (9.0-12.2); MONOCYTES # (AUTO) 0.8 10^3/uL (0.0-1.0); MONOCYTES % (AUTO) 9 % (0-12); NEUTROPHILS # (AUTO) 5.1 10^3/uL (1.8-7.8); NEUTROPHILS % (AUTO) 59 % (42-75); PLATELET COUNT 204 10^3/uL (130-400); WHITE BLOOD COUNT 8.7 10^3/uL (4.3-11.0)
[2022-03-10 23:57] LABS: ALBUMIN 3.6 GM/DL (3.2-4.5); BILIRUBIN,TOTAL 0.5 MG/DL (0.1-1.0); CALCIUM 8.9 MG/DL (8.5-10.1); CREATININE SERUM 1.34 MG/DL (0.60-1.30); MAGNESIUM 2.1 MG/DL (1.6-2.4); POTASSIUM 3.9 MMOL/L (3.6-5.0); TOTAL PROTEIN 7.1 GM/DL (6.4-8.2)
[2022-03-11 00:09] LABS: FIBRIN DEGRADATION PRODUCTS 0.09 UG/ML (0.00-0.49); PROTHROMBIN TIME PATIENT 13.6 SEC (12.2-14.7)
[2022-03-11] MEDS ORDERED: LABETALOL HCL 20 MG/4 ML VIAL IV ONE (00:15)
[2022-03-11] MEDS ORDERED: KETOROLAC 30 MG/ML VIAL IVP ONE (03:45)
[2022-03-11 03:51] VITALS: BP 160/105
--- NOTE | 2022-03-11 06:07 | Diagnostic Imaging Report ---
HISTORY: Chest pain TECHNIQUE: Frontal view of the chest COMPARISON: 07/27/2021 FINDINGS: Lung volumes are mildly large. There is increased airspace opacity in the right lung base compared to the prior exam. There is no pleural effusion or pneumothorax. The cardiac silhouette is stable in size. IMPRESSION: 1. Mildly increased airspace opacity at the right lung base compared to the prior study. This may be due to atelectasis or infiltrate. Dictated by: Dictated on workstation # [id number]
== END 2022-03-11 03:54 | disposition home or self-care (01) ==
LOC: EDUNIT# 20:41 → ER 20:44
DX: I10 Essential (primary) hypertension (principal); R77.8 Other specified abnormalities of plasma proteins; M72.2 Plantar fascial fibromatosis; M25.562 Pain in left knee; Z79.899 Other long term (current) drug therapy
CPT/HCPCS: 36415; 71045; 80053; 83735; 83874; 83880; 84484; 85025; 85379; 85610; 85730; 93005; 93041

== ENCOUNTER → 2022-04-26 | Outpatient (CLI) | payer OTHER | LOC: CARD 12:00 | PROVIDERS: ATTEND Nurse Practitioner Family | DX: I28.8 Other diseases of pulmonary vessels (principal); I51.7 Cardiomegaly | CPT/HCPCS: 93306 ==

== ENCOUNTER 2022-05-11 04:28 | Observation (INO) | payer OTHER ==
[~2022-05-11] VITALS: Ht 167.6 cm; Wt 84.0 kg
[2022-05-11] MEDS ORDERED: RT-ALBUTEROL SULF 2.5 MG/3 ML PRE-MIX VIAL INH STA (04:53)
[2022-05-11] MEDS ORDERED: methylPREDNISolone 125 MG (Solu-MEDROL) VIAL IV STA (04:53)
[2022-05-11] MEDS ORDERED: RT-ALBUTEROL/IPRATROPIUM 3 ML (DUONEB) VIAL INH ONE (05:00)
--- NOTE | 2022-05-11 05:00 | ED Respiratory ---
General Chief Complaint: Respiratory Problems Stated Complaint: SOB Nursing Triage Note: pt presents with dry cough and sob that began at 2300 last night. reports he used his inhailers at home without relief of symptoms. denies fever. Source: patient History of Present Illness Date Seen by Provider: May 11, 2022 Time Seen by Provider: 04:42 Initial Comments PT ARRIVES VIA POV--STATES HE HAD TO LEAVE WORK EARLY--WORKS AT [employer] C/O SHORTNESS OF BREATH AND CHEST TIGHTNESS THAT BEGAN AROUND 2300 TONIGHT AT WORK C/O NON-PRODUCTIVE COUGH NO FEVER/SWEATS/CHILLS NO GI SYMPTOMS NO NASAL CONGESTION OR SORE THROAT OR LOSS OF TASTE/SMELL NO HEADACHE NO BODY ACHES NO SWELLING IN LEGS/FEET OR PAIN IN CALVES. PT DOES HAVE CHRONIC PROBLEMS WITH LEFT KNEE PAIN AND SWELLING AND IS WEARING A BRACE ON LEFT KNEE. PT HAS HISTORY OF ASTHMA AND USES SYMBICORT DAILY AND PRO-AIR--HAS NEVER HAD A SPACER PT LAST USED HIS PRO-AIR INHALER 3 HOURS AGO WITHOUT RELIEF NO KNOWN SICK CONTACTS PT HAS HAD COVID-19 VACCINES X 3, LAST ONE IN NOVEMBER 2021 PT IS NON-SMOKER. ALSO HAS HTN, NO OTHER MEDICAL PROBLEMS STATES HE HAS NEVER HAD ANY CARDIAC PROBLEMS, NEVER HAD ANY CARDIAC STRESS TEST OR CARDIAC CATH, NEVER HAD AN IRREGULAR HEART BEAT OR BEEN ON BLOOD THINNERS OR SEEN A AIRPORT LOCATION MANAGER PCP: [facility] Allergies and Home Medications Allergies Uncoded Allergies: ENVIRONMENTAL (Allergy, Unknown, 07/24/15) Patient Home Medication List Albuterol Sulfate (Albuterol Sulfate) 8 Mg Tab.er.12h, (Reported) Entered as Reported by: YUNI ELLSWORTH on 07/24/20241 Diltiazem HCl (Diltiazem 24Hr ER) 180 Mg Cap.er.24h, (Reported) Entered as Reported by: YUNI ELLSWORTH on 07/24/20241 Hydrochlorothiazide (Hydrochlorothiazide) 12.5 Mg Tablet, (Reported) Entered as Reported by: YUNI ELLSWORTH on 07/24/20241 Ipratropium/Albuterol Sulfate (Iprat-Albut 0.5-3(2.5) mg/3 ml) 3 Ml Ampul.neb, 3 ML IH Q4H PRN for SHORTNESS OF BREATH Prescribed by: VICTOR MANUEL WALKER on 07/27/212044 Metoprolol Succinate (Metoprolol Succinate) 100 Mg Tab.er.24h, (Reported) Entered as Reported by: YUNI ELLSWORTH on 07/24/20 024 Prednisone (Prednisone) 20 Mg Tab, 40 MG PO DAILY Prescribed by: VICTOR MANUEL WALKER on 07/27/212044 Review of Systems Review of Systems Constitutional: no symptoms reported EENTM: no symptoms reported Respiratory: see HPI, cough, short of breath, wheezing Cardiovascular: see HPI, chest pain Gastrointestinal: no symptoms reported Genitourinary: no symptoms reported Musculoskeletal: other (ONGOING PROBLEMS WITH LEFT KNEE PAIN AND SWELLING--WEARING A BRACE ON LEFT KNEE) Skin: no symptoms reported Psychiatric/Neurological: No Symptoms Reported Hematologic/Lymphatic: No Symptoms Reported Immunological/Allergic: no symptoms reported Past Vjnkwwx-Ymirsl-Rejmqe Hx Patient Social History Tobacco Use?: No Smoking Status: Never a Smoker Substance use?: No Alcohol Use?: No Immunizations Up To Date Tetanus Booster (TDap): Unknown Influenza Vaccine Up-to-Date: No; Not Current First/Initial COVID19 Vaccinat: unknown date Second COVID19 Vaccination Conrad: unknown date Third COVID19 Vaccination Date: FEBRUARY 2021 Seasonal Allergies Seasonal Allergies: No Past Medical History Surgery/Hospitalization HX: MED HX: HTN Surgeries: No Respiratory: Yes Asthma Cardiac: Yes (BASELINE TROPONIN 0.04-0.05) Hypertension Neurological: No Reproductive Disorders: No Sexually Transmitted Disease: No Genitourinary: No Gastrointestinal: No Musculoskeletal: No Endocrine: No HEENT: No Cancer: No Psychosocial: No Integumentary: No Blood Disorders: No Physical Exam Vital Signs - First Documented Capillary Refill : Height: 5'4" Weight: 212lbs. oz. 96.231300hn; 34.00 BMI Method: General Appearance: WD/WN, other (MILDLY DYSPNEIC, BUT IS SITTING ON EDGE OF BED, LEANING SLIGHTLY FORWARD WITH HANDS ON EDGE OF BED) HEENT: PERRL/EOMI, normal ENT inspection, TMs normal, pharynx normal Neck: normal inspection Respiratory: wheezing (TIGHT WHEEZING IN ALL LUNG MAIER. ) Cardiovascular: regular rate, rhythm, no edema, no JVD, no murmur Gastrointestinal: soft Extremities: no pedal edema, no calf tenderness, normal capillary refill, other (LEFT KNEE WITH SWELLING AND IS IN A VELCRO KNEE BRACE. NO SWELLING BELOW THE LEVEL OF THE BRACE. ) Neurologic/Psychiatric: crane hooker II-XII nml as tested, no motor/sensory deficits, alert, normal mood/affect, oriented x 3 Skin: normal color (PT IS DARK SKINNED), warm/dry Progress/Results/Core Measures Suspected Sepsis SIRS Temperature: Pulse: 102 Respiratory Rate: 20 Laboratory Tests 05/11/22 04:56: White Blood Count 8.7 Blood Pressure 169 /122 Mean: 138 Laboratory Tests 05/11/22 04:56: Creatinine 1.41H, INR Comment 1.1, Platelet Count 189, Total Bilirubin 0.5 Results/Orders Lab Results Laboratory Tests Test 05/11/22 04:50 05/11/22 04:56 Range/Units Influenza Type A (RT-PCR) Not Detected Not Detecte Influenza Type B (RT-PCR) Not Detected Not Detecte SARS-CoV-2 RNA (RT-PCR) Not Detected Not Detecte White Blood Count 8.7 4.3-11.0 10^3/uL Red Blood Count 5.27 4.30-5.52 10^6/uL Hemoglobin 15.7 13.3-17.7 g/dL Hematocrit 46 40-54 % Mean Corpuscular Volume 86 80-99 fL Mean Corpuscular Hemoglobin 30 25-34 pg Mean Corpuscular Hemoglobin Concent 35 32-36 g/dL Red Cell Distribution Width 13.0 10.0-14.5 % Platelet Count 189 130-400 10^3/uL Mean Platelet Volume 8.5 L 9.0-12.2 fL Immature Granulocyte % (Auto) 1 % Neutrophils (%) (Auto) 60 42-75 % Lymphocytes (%) (Auto) 21 12-44 % Monocytes (%) (Auto) 6 0-12 % Eosinophils (%) (Auto) 12 H 0-10 % Basophils (%) (Auto) 1 0-10 % Neutrophils # (Auto) 5.2 1.8-7.8 10^3/uL Lymphocytes # (Auto) 1.8 1.0-4.0 10^3/uL Monocytes # (Auto) 0.5 0.0-1.0 10^3/uL Eosinophils # (Auto) 1.1 H 0.0-0.3 10^3/uL Basophils # (Auto) 0.1 0.0-0.1 10^3/uL Immature Granulocyte # (Auto) 0.0 0.0-0.1 10^3/uL Erythrocyte Sedimentation Rate 39 H 0-30 MM/HR Prothrombin Time 14.4 12.2-14.7 SEC INR Comment 1.1 0.8-1.4 Activated Partial Thromboplast Time 41 H 24-35 SEC D-Dimer 0.42 0.00-0.49 UG/ML Sodium Level 142 135-145 MMOL/L Potassium Level 3.4 L 3.6-5.0 MMOL/L Chloride Level 104 98-107 MMOL/L Carbon Dioxide Level 23 21-32 MMOL/L Anion Gap 15 H 5-14 MMOL/L Blood Urea Nitrogen 29 H 7-18 MG/DL Creatinine 1.41 H 0.60-1.30 MG/DL Estimat Glomerular Filtration Rate 59 BUN/Creatinine Ratio 21 Glucose Level 141 H 70-105 MG/DL Calcium Level 9.5 8.5-10.1 MG/DL Corrected Calcium 9.5 8.5-10.1 MG/DL Magnesium Level 1.7 1.6-2.4 MG/DL Total Bilirubin 0.5 0.1-1.0 MG/DL Aspartate Amino Transf (AST/SGOT) 24 5-34 U/L Alanine Aminotransferase (ALT/SGPT) 34 0-55 U/L Alkaline Phosphatase 103 40-136 U/L Total Creatine Kinase 304 H 30-200 U/L Creatine Kinase MB 11.5 *H <6.6 NG/ML Myoglobin 148.3 H 10.0-92.0 NG/ML Troponin I 0.043 H <0.028 NG/ML C-Reactive Protein High Sensitivity 2.89 H 0.00-0.50 MG/DL B-Type Natriuretic Peptide < 10.0 <100.0 PG/ML Total Protein 8.2 6.4-8.2 GM/DL Albumin 4.0 3.2-4.5 GM/DL Procalcitonin 0.09 <0.10 NG/ML My Orders Orders - ASPEN ANDERSON DO Cbc With Automated Diff (05/11/22 04:41) Comprehensive Metabolic Panel (05/11/22 04:41) Fibrin Degradation Products (05/11/22 04:41) Procalcitonin (Pct) (05/11/22 04:41) Hs C Reactive Protein (7/7/22 04:41) Erythrocyte Sedimentation Rate (05/11/22 04:41) Ekg Tracing (05/11/22 04:41) Chest 1 View, Ap/Pa Only (05/11/22 04:41) Covid 19 Inhouse Test (05/11/22 04:41) O2 (05/11/22 04:41) Monitor-Rhythm Ecg Trace Only (05/11/22 04:41) Bnp [place] (05/11/22 04:41) Creatine Kinase (05/11/22 04:41) Creatine Kinase Mb (05/11/22 04:41) Magnesium (05/11/22 04:41) Protime With Inr (05/11/22 04:41) Partial Thromboplastin Time (05/11/22 04:41) Myoglobin Serum (05/11/22 04:41) Troponin I Min (05/11/22 04:41) Influenza A And B By Pcr (05/11/22 04:41) Isolation Central Supply Req (05/11/22 04:41) Albuterol Pre-Mix Nebs (Rt) (Proventil (05/11/22 04:53) Albuterol/Ipra Inhalation Soln (Duoneb I (05/11/22 05:00) Dexamethasone Injection (Decadron Injec (05/11/22 05:00) Rt Request For Service (05/11/22 04:53) Methylprednisolone Sod Succ (Solu-Medrol (05/11/22 04:53) Svn Small Volume Nebulizer (05/11/22 04:53) Svn Small Volume Nebulizer (05/11/22 04:53) Medications Given in ED Current Medications Medications Dose Ordered Sig/Verna Route Start Time Stop Time Status Last Admin Dose Admin Albuterol/ Ipratropium 3 ml ONCE ONCE INH 05/11/22 05:00 05/11/22 05:01 DC 05/11/22 05:01 3 ML Dexamethasone Sodium Phosphate 20 mg ONCE ONCE IH 05/11/22 05:00 05/11/22 05:01 DC 05/11/22 05:01 20 MG Vital Signs/I&O 05/11/22 05/11/22 05/11/22 05/11/22 04:44 04:44 04:44 06:32 Pulse 102 104 Resp 20 18 B/P (MAP) 169/122 (138) 129/86 Pulse Ox 98 98 94 O2 Delivery Room Air Room Air Room Air Room Air Capillary Refill : Blood Pressure Mean: 138 Progress Note : Progress Note PPE WORN COVID AND FLU TESTING DONE GIVEN NEB TREATMENTS AND IV STEROIDS WITH IMPROVEMENT IN SYMPTOMS 02 SATS 95% ON ROOM AIR AFTER NEB TREATMENT. ON REVIEW OF PREVIOUS LAB, TROPONIN HAS BEEN PERSISTENTLY ELEVATED TO 0.04-0.05. PT STATES HE HAS NEVER HAD ANY PROBLEMS WITH HIS HEART OR SEEN A AIRPORT LOCATION MANAGER ECG Initial ECG Impression Date: May 11, 2022 Initial ECG Impression Time: 04:50 Initial ECG Rate: 90 Initial ECG Rhythm: Normal Sinus Diagnostic Imaging Comments CXR--PER RADIOLOGIST REPORT AT 0549 Findings: No focal airspace disease in the visualized lungs. Please note that the posterior lower lobes are poorly evaluated by portable radiography. No pleural effusion or pneumothorax. Normal cardiomediastinal silhouette. Impression: 1. No acute cardiopulmonary process by portable radiography. Reviewed: Reviewed by Oh Departure Communication (Admissions) 0615--SPOKE WITH DR. DUMONT, ACCEPTS PT FOR ADMIT. WILL CONSULT CARDIOLOGY REGARDING HTN AND ELEVATED CARDIAC ENZYMES Impression Primary Impression: Asthma exacerbation Additional Impressions: Hypertension Elevation of cardiac enzymes Renal insufficiency Disposition: ADMITTED INPATIENT Condition: Improved Admissions Decision to Admit Reason: Admit from ER (General) Decision to Admit/Date: May 11, 2022 Time/Decision to Admit Time: 06:15 Departure-Patient Inst. Referrals: [facility] (PCP) Primary Care Physician CY ALONZO APRN (Family) Primary Care Physician ASPEN ANDERSON DO May 11, 2022 05:00
[2022-05-11 05:04] LABS: BASOPHILS # (AUTO) 0.1 10^3/uL (0.0-0.1); BASOPHILS % (AUTO) 1 % (0-10); EOSINOPHILS # (AUTO) 1.1 10^3/uL (0.0-0.3); EOSINOPHILS % (AUTO) 12 % (0-10); HEMATOCRIT 46 % (40-54); HEMOGLOBIN 15.7 g/dL (13.3-17.7); LYMPHOCYTES # (AUTO) 1.8 10^3/uL (1.0-4.0); LYMPHOCYTES % (AUTO) 21 % (12-44); MEAN CORPUSCULAR HEMOGLOBIN 30 pg (25-34); MEAN CORPUSCULAR HGB CONC 35 g/dL (32-36); MEAN CORPUSCULAR VOLUME 86 fL (80-99); MEAN PLATELET VOLUME 8.5 fL (9.0-12.2); MONOCYTES # (AUTO) 0.5 10^3/uL (0.0-1.0); MONOCYTES % (AUTO) 6 % (0-12); NEUTROPHILS # (AUTO) 5.2 10^3/uL (1.8-7.8); NEUTROPHILS % (AUTO) 60 % (42-75); PLATELET COUNT 189 10^3/uL (130-400); WHITE BLOOD COUNT 8.7 10^3/uL (4.3-11.0)
[2022-05-11 05:12] LABS: POTASSIUM 3.4 MMOL/L (3.6-5.0)
[2022-05-11 05:13] LABS: CALCIUM 9.5 MG/DL (8.5-10.1)
[2022-05-11 05:14] LABS: TOTAL PROTEIN 8.2 GM/DL (6.4-8.2)
[2022-05-11 05:16] LABS: BILIRUBIN,TOTAL 0.5 MG/DL (0.1-1.0)
[2022-05-11 05:17] LABS: FIBRIN DEGRADATION PRODUCTS 0.42 UG/ML (0.00-0.49); INR 1.1 (0.8-1.4); PROTHROMBIN TIME PATIENT 14.4 SEC (12.2-14.7)
[2022-05-11 05:18] LABS: CREATININE SERUM 1.41 MG/DL (0.60-1.30)
[2022-05-11 05:20] LABS: MAGNESIUM 1.7 MG/DL (1.6-2.4)
[2022-05-11 05:32] LABS: ERYTHROCYTE SEDIMENTATION RATE 39 MM/HR (0-30)
[2022-05-11 05:33] LABS: CREATINE KINASE MB 11.5 NG/ML (<6.6)
--- NOTE | 2022-05-11 05:48 | Diagnostic Imaging Report ---
CHEST 1 VIEW, AP/PA ONLY Indication: Dyspnea Comparison: 03/10/2022 Findings: No focal airspace disease in the visualized lungs. Please note that the posterior lower lobes are poorly evaluated by portable radiography. No pleural effusion or pneumothorax. Normal cardiomediastinal silhouette. Impression: 1. No acute cardiopulmonary process by portable radiography. Dictated by: Dictated on workstation # [id number]
[2022-05-11 07:42] VITALS: BP 143/86
--- NOTE | 2022-05-11 08:41 | Consultation-Cardiology ---
HPI-Cardiology Cardiology Consultation: Date of Consultation 05/11/22 Time Seen by a Provider: 08:10 Date of Admission 05-10-22 Attending Physician [place] Admitting Physician Admitting Physician: Sharri Solorio MD Attending Physician: Sharri Solorio MD Consulting Physician Davion Simon MD HPI: Chief Complaint: Progressive dyspnea Chest discomfort Mr. Davis is a 56 yr old male admitted to 507 from the ED with c/o increasing dyspnea over the last couple days. He reports he went to work last night and his dyspnea became progressively worse with associated chest tightness and dizziness. No c/o diaphoresis or palpitations. He states he used his inhalers given to him by his PCP, however they did not provide any relief. He denies any syncope or near syncope. He denies any LE swelling. He reports his SOB was worse with exertion, however that has also resolved as of this morning. He reports his symptoms have been relieved with steroids and nebulizer treatments. He denies any n/v/d. He denies any fever or chills. Review of Systems-Cardiology Review of Systems Constitutional: No chills, No fever, No malaise Eyes: No vision change Ears/Nose/Throat: No epistaxis, No recent hearing loss Respiratory: As described under HPI Cardiovascular: As described under HPI Gastrointestinal: No constipation, No diarrhea, No nausea, No vomiting Genitourinary: No hematuria Musculoskeletal: joint pain (chronic) Skin: No rash on exposed areas, No ulcerations on exposed areas Psychiatric/Neurological: No anxiety, No depression, No seizure, No focal weakness, No syncope Hematologic: No bleeding abnormalities UWK-Cibgyv-Kdapsy Hx Patient Social History Smoking Status: Never a Smoker 2nd Hand Smoke Exposure: No Have you traveled recently?: No Alcohol Use?: No Pt feels they are or have been: No Immunizations Up To Date Tetanus Booster (TDap): Unknown Past Medical History PMH As described under Assessment. Family Medical History Family Medical History: He reports his mother had "heart trouble" and in her early 40's. He does not know the details. Allergies and Home Medications Allergies Uncoded Allergies: ENVIRONMENTAL (Allergy, Unknown, 07/24/15) Patient Home Medication List Acetaminophen (Tylenol Arthritis) 650 Mg Tablet.er, 1,300 MG PO Q6H PRN for P AIN-MILD (1-4), (Reported) Entered as Reported by: WILLIE BRADSHAW on 05/11/221539 Last Action: Held Albuterol Sulfate (Proair Hfa) 1 Puff Puff, 2 PUFF IH Q4H PRN for SHORTNESS OF BREATH, (Reported) Entered as Reported by: WILLIE BRADSHAW on 05/11/221539 Last Action: Held Budesonide/Formoterol Fumarate (Symbicort 160-4.5 Mcg Inhaler) 160 Mcg-4.5 Mcg/Actuation Hfa.aer.ad, 2 PUFF IH BID, (Reported) Entered as Reported by: WILLIE BRADSHAW on 05/11/221539 Last Action: Held Losartan/Hydrochlorothiazide (Losartan-Hctz 100-25 mg Tab) 100 Mg-25 Mg Tablet, 1 EACH PO DAILY, (Reported) Entered as Reported by: WILLIE BRADSHAW on 05/11/221539 Last Action: Converted Discontinued Medications Albuterol Sulfate (Albuterol Sulfate) 8 Mg Tab.er.12h, (Reported) Discontinued Reason: No Longer Taking Entered as Reported by: YUNI ELLSWORTH on 07/24/20241 Last Action: Discontinued Diltiazem HCl (Diltiazem 24Hr ER) 180 Mg Cap.er.24h, (Reported) Discontinued Reason: No Longer Taking Entered as Reported by: YUNI ELLSWORTH on 07/24/20241 Last Action: Discontinued Hydrochlorothiazide (Hydrochlorothiazide) 12.5 Mg Tablet, (Reported) Discontinued Reason: No Longer Taking Entered as Reported by: YUNI ELLSWORTH on 07/24/20241 Last Action: Discontinued Ipratropium/Albuterol Sulfate (Iprat-Albut 0.5-3(2.5) mg/3 ml) 3 Ml Ampul.neb, 3 ML IH Q4H PRN for SHORTNESS OF BREATH Discontinued Reason: No Longer Taking Prescribed by: VICTOR MANUEL WALKER on 07/27/212044 Last Action: Discontinued Metoprolol Succinate (Metoprolol Succinate) 100 Mg Tab.er.24h, (Reported) Discontinued Reason: No Longer Taking Entered as Reported by: YUNI ELLSWORTH on 07/24/20241 Last Action: Discontinued Prednisone (Prednisone) 20 Mg Tab, 40 MG PO DAILY Discontinued Reason: No Longer Taking Prescribed by: VICTOR MANUEL WALKER on 07/27/212044 Last Action: Discontinued Physical Exam-Cardiology Physical Exam Vital Signs/I&O 05/11/22 05/12/22 05/12/22 05/12/22 23:32 00:00 00:00 01:00 Temp 36.8 Pulse 126 70 Resp 24 B/P (MAP) 142/78 (99) Pulse Ox 96 93 O2 Delivery Room Air Room Air 05/12/22 05/12/22 05/12/22 05/12/22 04:00 04:00 07:00 07:47 Temp 36.5 36.4 Pulse 74 86 82 Resp 16 16 B/P (MAP) 144/84 (104) 134/89 (102) Pulse Ox 95 95 O2 Delivery Room Air Room Air 05/12/22 08:13 Pulse Ox 95 O2 Delivery Room Air 05/12/22 00:00 Intake Total 1300 ml Output Total 600 ml Balance 700 ml Capillary Refill : Constitutional: AAO x 3, well-developed, well-nourished HEENT: PERRL, hearing is well preserved, oral hygience is good Neck: No carotid bruit; carotid pulses are 2 + bilaterally Respiratory: No accessory muscle use, No respiratory distress; chest expansion is symmetric, chest is bilaterally symmetric, lungs clear to auscultation Cardiovascular: regular rate-rhythm; No JVD; S1 and S2 Gastrointestinal: No tender; soft, round, audible bowel sounds Extremities: no lower extremity edema bilateral Neurologic/Psychiatric: grossly intact (moves all extremities) Skin: No rash on exposed areas, No ulcerations on exposed areas Data Review Labs Laboratory Tests 05/11/22 12:10: Troponin I 0.044H 05/12/22 05:30: White Blood Count 14.6H, Red Blood Count 4.93, Hemoglobin 14.6, Hematocrit 43, Mean Corpuscular Volume 87, Mean Corpuscular Hemoglobin 30, Mean Corpuscular Hemoglobin Concent 34, Red Cell Distribution Width 13.1, Platelet Count 198, Mean Platelet Volume 9.2, Immature Granulocyte % (Auto) 1, Neutrophils (%) (Auto) 91H, Lymphocytes (%) (Auto) 6L, Monocytes (%) (Auto) 2, Eosinophils (%) (Auto) 0, Basophils (%) (Auto) 0, Neutrophils # (Auto) 13.3H, Lymphocytes # (Auto) 0.9L, Monocytes # (Auto) 0.3, Eosinophils # (Auto) 0.0, Basophils # (Auto) 0.0, Immature Granulocyte # (Auto) 0.1, Neutrophils % (Manual) 91, Lymphocytes % (Manual) 6, Monocytes % (Manual) 1, Band Neutrophils 2, Blood M orphology Comment NORMAL, Sodium Level 139, Potassium Level 3.7, Chloride Level 104, Carbon Dioxide Level 20L, Anion Gap 15H, Blood Urea Nitrogen 30H, Creatinine 1.28, Estimat Glomerular Filtration Rate 67, BUN/Creatinine Ratio 23, Glucose Level 147H, Calcium Level 9.5, Magnesium Level 1.8 Radiology NAME: MARLY DAVIS [facility] REC#: [id number] PT STATUS: REG ER : 1965 PHYSICIAN: ASPEN ANDERSON DO ADMIT DATE: 05/11/22/ER Signed Date of Exam:05/11/22 CHEST 1 VIEW, AP/PA ONLY CHEST 1 VIEW, AP/PA ONLY Indication: Dyspnea Comparison: 03/10/2022 Findings: No focal airspace disease in the visualized lungs. Please note that the posterior lower lobes are poorly evaluated by portable radiography. No pleural effusion or pneumothorax. Normal cardiomediastinal silhouette. Impression: 1. No acute cardiopulmonary process by portable radiography. Dictated by: Dictated on workstation # [id number] Dict: 05/11/22 0546 Trans: 05/11/22 0546 [facility] [id number] Interpreted by: AMY FORD MD Electronically signed by: AMY FORD MD 05/11/22 0546 ECG Impression ECG Initial ECG Rhythm: Normal Sinus A/P-Cardiology Assessment/Admission Diagnosis Progressive KELLY Chest discomfort - undetermined etiology - minimally elevated troponin (chronically minimal elevation since Jul 2020) Echocardiogram of 04-26-[address] Medina showed LVEF 55-690%. PASP 35-40 mmHg H/O asthma HTN - maintained on Losartan/HCTZ Arthritis Discussion and Recomendations Progressive KELLY with non-specific chest discomfort of undetermined etiology Chronic minimal troponin elevation since 2019 Advise MPI to eval perfusion Management of ? asthma exacerbation per medical services Stop Losartan d/t CKD 2 Start BB Hypokalemia likely d/t chronic diuretic use (HCTZ) - advise cessation of HCTZ d/t normal LVEF on recent echocardiogram and no evidence of swelling Replace electrolytes Monitor lab closely Further recs will be based on his hospital course We would like to thank Dr. Solorio for this consult NORRIS TYSON May 11, 2022 08:41
[2022-05-11] MEDS ORDERED: REGADENOSON 0.4 MG/5 ML SYR (LEXISCAN) IV ONE (09:00)
[2022-05-11] MEDS ORDERED: KCL 20 MEQ TAB (K-DUR) PO ONE (09:00)
[2022-05-11] MEDS ORDERED: ACETAMINOPHEN 500 MG TAB (TYLENOL) PO PRN (09:15)
--- NOTE | 2022-05-11 09:56 | History & Physical ---
HPI History of Present Illness: 56 yo male presented to ER from work due to shortness of breath and lightheadedness that started last night. He has a history of asthma, but has not had this bad of shortness of breath before. He does get tired sometimes when he works outside a lot. Source: patient Exam Limitations: language barrier Date seen by provider: May 11, 2022 Time Seen by Provider: 09:52 Attending Physician [place] PCP Admitting Physician: iX Dumont MD Attending Physician: Xi Dumont MD Consult Date of Admission May 11, 2022 at 06:15 Home Medications Home Medications Reviewed patient Home Medication Reconciliation performed by pharmacy medication reconciliations unit technician and/or nursing. Patients Allergies have been reviewed. Allergies Uncoded Allergies: ENVIRONMENTAL (Allergy, Unknown, 07/24/15) JAZ-Tnojrn-Ryxpyn Hx Patient Social History Smoking Status: Former Smoker (quit in 2001, smoked for 10 years) 2nd Hand Smoke Exposure: No Recent Hopitalizations: No Alcohol Use?: No Have you traveled recently?: No Immunizations Up To Date Tetanus Booster (TDap): Unknown Influenza Vaccine Up-to-Date: No; Not Current First/Initial COVID19 Vaccinat: unknown date Second COVID19 Vaccination Conrad: unknown date Third COVID19 Vaccination Date: unknown date Past Medical History PMHx: HTN Arthritis Asthma SurgHx: Denies Family Medical History Significant Family History: Heart Disease (mother, in 20s or 30s, unknown diagnosis), Diabetes (father), Hypertension (father) Review of Systems ([facility]) Constitutional: No dizziness, No fever EENTM: No vision loss Respiratory: cough (mild, for a few days), short of breath Cardiovascular: No chest pain Gastrointestinal: No abdominal pain, No constipation, No diarrhea, No nausea, No vomiting Skin: No rash; other (itchiness on left knee after he uses knee brace) Psychiatric/Neurological: Denies Headache Reviewed Test Results Reviewed Test Results Lab Laboratory Tests Test 05/11/22 04:50 05/11/22 04:56 05/11/22 08:01 Range/Units Influenza Type A (RT-PCR) Not Detected Not Detecte Influenza Type B (RT-PCR) Not Detected Not Detecte SARS-CoV-2 RNA (RT-PCR) Not Detected Not Detecte White Blood Count 8.7 4.3-11.0 10^3/uL Red Blood Count 5.27 4.30-5.52 10^6/uL Hemoglobin 15.7 13.3-17.7 g/dL Hematocrit 46 40-54 % Mean Corpuscular Volume 86 80-99 fL Mean Corpuscular Hemoglobin 30 25-34 pg Mean Corpuscular Hemoglobin Concent 35 32-36 g/dL Red Cell Distribution Width 13.0 10.0-14.5 % Platelet Count 189 130-400 10^3/uL Mean Platelet Volume 8.5 L 9.0-12.2 fL Immature Granulocyte % (Auto) 1 % Neutrophils (%) (Auto) 60 42-75 % Lymphocytes (%) (Auto) 21 12-44 % Monocytes (%) (Auto) 6 0-12 % Eosinophils (%) (Auto) 12 H 0-10 % Basophils (%) (Auto) 1 0-10 % Neutrophils # (Auto) 5.2 1.8-7.8 10^3/uL Lymphocytes # (Auto) 1.8 1.0-4.0 10^3/uL Monocytes # (Auto) 0.5 0.0-1.0 10^3/uL Eosinophils # (Auto) 1.1 H 0.0-0.3 10^3/uL Basophils # (Auto) 0.1 0.0-0.1 10^3/uL Immature Granulocyte # (Auto) 0.0 0.0-0.1 10^3/uL Erythrocyte Sedimentation Rate 39 H 0-30 MM/HR Prothrombin Time 14.4 12.2-14.7 SEC INR Comment 1.1 0.8-1.4 Activated Partial Thromboplast Time 41 H 24-35 SEC D-Dimer 0.42 0.00-0.49 UG/ML Sodium Level 142 135-145 MMOL/L Potassium Level 3.4 L 3.6-5.0 MMOL/L Chloride Level 104 98-107 MMOL/L Carbon Dioxide Level 23 21-32 MMOL/L Anion Gap 15 H 5-14 MMOL/L Blood Urea Nitrogen 29 H 7-18 MG/DL Creatinine 1.41 H 0.60-1.30 MG/DL Estimat Glomerular Filtration Rate 59 BUN/Creatinine Ratio 21 Glucose Level 141 H 70-105 MG/DL Calcium Level 9.5 8.5-10.1 MG/DL Corrected Calcium 9.5 8.5-10.1 MG/DL Magnesium Level 1.7 1.6-2.4 MG/DL Total Bilirubin 0.5 0.1-1.0 MG/DL Aspartate Amino Transf (AST/SGOT) 24 5-34 U/L Alanine Aminotransferase (ALT/SGPT) 34 0-55 U/L Alkaline Phosphatase 103 40-136 U/L Total Creatine Kinase 304 H 30-200 U/L Creatine Kinase MB 11.5 *H <6.6 NG/ML Myoglobin 148.3 H 10.0-92.0 NG/ML Troponin I 0.043 H 0.047 H <0.028 NG/ML C-Reactive Protein High Sensitivity 2.89 H 0.00-0.50 MG/DL B-Type Natriuretic Peptide < 10.0 <100.0 PG/ML Total Protein 8.2 6.4-8.2 GM/DL Albumin 4.0 3.2-4.5 GM/DL Procalcitonin 0.09 <0.10 NG/ML Radiology NAME: MARLY [facility]RA [facility] REC#: [id number] PT STATUS: REG ER : 1965 PHYSICIAN: ASPEN ANDERSON DO ADMIT DATE: 05/11/22/ER Signed Date of Exam:05/11/22 CHEST 1 VIEW, AP/PA ONLY CHEST 1 VIEW, AP/PA ONLY Indication: Dyspnea Comparison: 03/10/2022 Findings: No focal airspace disease in the visualized lungs. Please note that the posterior lower lobes are poorly evaluated by portable radiography. No pleural effusion or pneumothorax. Normal cardiomediastinal silhouette. Impression: 1. No acute cardiopulmonary process by portable radiography. Dictated by: Dictated on workstation # [id number] Dict: 05/11/22 0546 Trans: 05/11/22 0546 [facility] [id number] Interpreted by: AMY FORD MD Electronically signed by: AMY FORD MD 05/11/22 0546 Physical Exam-([facility]) Physical Exam Vital Signs VS - Last 72 Hours, by Label 05/11/22 05/11/22 05/11/22 05/11/22 04:44 04:44 04:44 06:32 Pulse 102 104 Resp 20 18 B/P (MAP) 169/122 (138) 129/86 Pulse Ox 98 98 94 O2 Delivery Room Air Room Air Room Air Room Air 05/11/22 05/11/22 05/11/22 05/11/22 07:27 07:30 07:36 07:42 Temp 36.3 Pulse 67 107 96 Resp 16 20 B/P (MAP) 176/69 143/86 (105) Pulse Ox 98 96 O2 Delivery Room Air Room Air Room Air 05/11/22 05/11/22 05/11/22 05/11/22 10:53 12:00 13:00 16:00 Temp 36.3 36.4 36.0 Pulse 96 86 85 79 Resp 22 14 B/P (MAP) 122/79 (93) 148/87 (107) Pulse Ox 96 94 97 O2 Delivery Room Air Room Air FiO2 21 Capillary Refill : General Appearance: WD/WN, no apparent distress Respiratory: normal breath sounds, no respiratory distress, wheezing (end expiratory on left) Cardiovascular: regular rate, rhythm Gastrointestinal: normal bowel sounds, non tender, soft Extremities: no pedal edema Neurologic/Psychiatric: alert, normal mood/affect Skin: normal color, warm/dry Assessment/Plan Assessment/Plan Admission Status: Observation (1) Asthma exacerbation Status: Acute Assessment & Plan: Continue albuterol, inhaled steroid/LABA and systemic steroid Qualifiers: Qualified Codes: J45.41 - Moderate persistent asthma with (acute) exacerbation (2) Elevation of cardiac enzymes Status: Chronic Assessment & Plan: Mild elevation of troponin chronic, unclear etiology, given family history and age, history of smoking, concerning for underlying cardiac issue, will consult Cardiology. (3) Hypertension Status: Chronic Assessment & Plan: Resume home med (4) Kidney insufficiency Status: Acute Assessment & Plan: Uncertain baseline, appears to have trending up creatinine over last year or so, but he is not aware of CKD diagnosis in the past. Review of clinic chart shows Cr 1.50 on 04/14/22. Suspect CKD. (5) Shortness of breath Status: Chronic Assessment & Plan: On review of clinic chart, patient reported shortness of breath ever since COVID infection in 2019. CXR done 04/14/22 in clinic showed prominence of left hilum and suprahilar region iwth presence of possible mass. CT done to follow up on 04/18/22 showed dilated main pulmonary artery and marked enlargement of left main pulmonary artery, evaluation for possible pulmonic valve stenosis was recommended and lungs showed mild pleural thickening and minimal scarring in lung bases possibly on post-COVID basis. Echo was done 04/26/22 and showed EF 55-60%, concentric hypertrophy, PA pressure 35-40. Pulmonic valve was not well seen. (6) DVT prophylaxis Status: Acute Assessment & Plan: Enoxaparin XI DUMONT MD May 11, 2022 09:56
[2022-05-11] MEDS: meTOproloL SUCCINATE 50 MG (TOPROL XL) TAB PO SCH (10:17)
[2022-05-11 10:53] VITALS: BP 143/86
[2022-05-11 12:00] VITALS: BP 122/79
[2022-05-11] MEDS: methylPREDNISolone 125 MG (Solu-MEDROL) VIAL IVP SCH ×2 (12:40→18:16)
[2022-05-11] MEDS ORDERED: RT-ALBUTEROL SULF 2.5 MG/3 ML PRE-MIX VIAL INH PRN (15:30)
[2022-05-11] MEDS ORDERED: BUDE10.2 IH (15:40)
[2022-05-11] MEDS ORDERED: RT-ALBUINH IH (15:40)
[2022-05-11] MEDS ORDERED: LOSA1TAB23 PO (15:40)
[2022-05-11] MEDS ORDERED: ACET-2650 PO (15:40)
[2022-05-11 16:00] VITALS: BP 148/87
--- NOTE | 2022-05-11 18:25 | Consultation-Cardiology ---
HPI-Cardiology Cardiology Consultation: Date of Consultation 05/11/22 Time Seen by a Provider: 10:20 Date of Admission Attending Physician [place] Admitting Physician Admitting Physician: Sharri Solorio MD Attending Physician: Sharri Solorio MD Consulting Physician CUCO CONTRERAS MD, MA, FACP, FACC, FSCAI, CCDS HPI: Chief Complaint: Progressive dyspnea Chest discomfort Mr. Davis is a 56 yr old male admitted to [facility] from the ED with c/o increasing dyspnea over the last couple days. He reports he went to work last night and his dyspnea became progressively worse with associated chest tightness and dizziness. No c/o diaphoresis or palpitations. He states he used his inhalers given to him by his PCP, however they did not provide any relief. He denies any syncope or near syncope. He denies any LE swelling. He reports his SOB was worse with exertion, however that has also resolved as of this morning. He reports his symptoms have been relieved with steroids and nebulizer treatments. He denies any n/v/d. He denies any fever or chills. Review of Systems-Cardiology Review of Systems Constitutional: No chills, No fever, No malaise Eyes: No vision change Ears/Nose/Throat: No epistaxis, No recent hearing loss Respiratory: As described under HPI Cardiovascular: As described under HPI Gastrointestinal: No constipation, No diarrhea, No nausea, No vomiting Genitourinary: No hematuria Musculoskeletal: joint pain (chronic) Skin: No rash on exposed areas, No ulcerations on exposed areas Psychiatric/Neurological: No anxiety, No depression, No seizure, No focal weakness, No syncope Hematologic: No bleeding abnormalities EOM-Hqucdc-Nwtijc Hx Patient Social History Smoking Status: Former Smoker (quit in 2001, smoked for 10 years) 2nd Hand Smoke Exposure: No Have you traveled recently?: No Alcohol Use?: No Pt feels they are or have been: No Immunizations Up To Date Tetanus Booster (TDap): Unknown Past Medical History PMH As described under Assessment. Family Medical History Family Medical History: He reports his mother had "heart trouble" and in her early 40's. He does not know the details. Allergies and Home Medications Allergies Uncoded Allergies: ENVIRONMENTAL (Allergy, Unknown, 07/24/15) Patient Home Medication List Home Medication List Reviewed: Yes Acetaminophen (Tylenol Arthritis) 650 Mg Tablet.er, 1,300 MG PO Q6H PRN for PAIN-MILD (1-4), (Reported) Entered as Reported by: WILLIE BRADSHAW on 05/11/221539 Last Action: Held Albuterol Sulfate (Proair Hfa) 1 Puff Puff, 2 PUFF IH Q4H PRN for SHORTNESS OF BREATH, (Reported) Entered as Reported by: WILLIE BRADSHAW on 05/11/221539 Last Action: Held Budesonide/Formoterol Fumarate (Symbicort 160-4.5 Mcg Inhaler) 160 Mcg-4.5 Mcg/Actuation Hfa.aer.ad, 2 PUFF IH BID, (Reported) Entered as Reported by: WILLIE BRADSHAW on 05/11/221539 Last Action: Held Losartan/Hydrochlorothiazide (Losartan-Hctz 100-25 mg Tab) 100 Mg-25 Mg Tablet, 1 EACH PO DAILY, (Reported) Entered as Reported by: WILLIE BRADSHAW on 05/11/221539 Last Action: Converted Discontinued Medications Albuterol Sulfate (Albuterol Sulfate) 8 Mg Tab.er.12h, (Reported) Discontinued Reason: No Longer Taking Entered as Reported by: YUNI ELLSWORTH on 07/24/20241 Last Action: Discontinued Diltiazem HCl (Diltiazem 24Hr ER) 180 Mg Cap.er.24h, (Reported) Discontinued Reason: No Longer Taking Entered as Reported by: YUNI ELLSWORTH on 07/24/20241 Last Action: Discontinued Hydrochlorothiazide (Hydrochlorothiazide) 12.5 Mg Tablet, (Reported) Discontinued Reason: No Longer Taking Entered as Reported by: YUNI ELLSWORTH on 07/24/20241 Last Action: Discontinued Ipratropium/Albuterol Sulfate (Iprat-Albut 0.5-3(2.5) mg/3 ml) 3 Ml Ampul.neb, 3 ML IH Q4H PRN for SHORTNESS OF BREATH Discontinued Reason: No Longer Taking Prescribed by: VICTOR MANUEL WALKER on 07/27/212044 Last Action: Discontinued Metoprolol Succinate (Metoprolol Succinate) 100 Mg Tab.er.24h, (Reported) Discontinued Reason: No Longer Taking Entered as Reported by: YUNI ELLSWORTH on 07/24/20241 Last Action: Discontinued Prednisone (Prednisone) 20 Mg Tab, 40 MG PO DAILY Discontinued Reason: No Longer Taking Prescribed by: VICTOR MANUEL WALKER on 07/27/212044 Last Action: Discontinued Physical Exam-Cardiology Physical Exam Vital Signs/I&O 05/11/22 05/11/22 05/11/22 05/11/22 06:32 07:27 07:30 07:36 Pulse 104 67 107 Resp 18 16 B/P (MAP) 129/86 176/69 Pulse Ox 94 98 O2 Delivery Room Air Room Air Room Air 05/11/22 05/11/22 05/11/22 05/11/22 07:42 10:53 12:00 13:00 Temp 36.3 36.3 36.4 Pulse 96 96 86 85 Resp 20 22 B/P (MAP) 143/86 (105) 122/79 (93) Pulse Ox 96 96 94 O2 Delivery Room Air Room Air FiO2 21 05/11/22 16:00 Temp 36.0 Pulse 79 Resp 14 B/P (MAP) 148/87 (107) Pulse Ox 97 O2 Delivery Room Air Capillary Refill : Constitutional: AAO x 3, well-developed, well-nourished HEENT: PERRL, hearing is well preserved, oral hygience is good Neck: No carotid bruit; carotid pulses are 2 + bilaterally Respiratory: No accessory muscle use, No respiratory distress; chest expansion is symmetric, chest is bilaterally symmetric, lungs clear to auscultation Cardiovascular: regular rate-rhythm; No JVD; S1 and S2 Gastrointestinal: No tender; soft, round, audible bowel sounds Extremities: no lower extremity edema bilateral Neurologic/Psychiatric: grossly intact (moves all extremities) Skin: No rash on exposed areas, No ulcerations on exposed areas Data Review Labs Laboratory Tests 05/11/22 04:50: Influenza Type A (RT-PCR) Not Detected, Influenza Type B (RT-PCR) Not Detected, SARS-CoV-2 RNA (RT-PCR) Not Detected 05/11/22 04:56: White Blood Count 8.7, Red Blood Count 5.27, Hemoglobin 15.7, Hematocrit 46, Mean Corpuscular Volume 86, Mean Corpuscular Hemoglobin 30, Mean Corpuscular Hemoglobin Concent 35, Red Cell Distribution Width 13.0, Platelet Count 189, Mean Platelet Volume 8.5L, Immature Granulocyte % (Auto) 1, Neutrophils (%) (Auto) 60, Lymphocytes (%) (Auto) 21, Monocytes (%) (Auto) 6, Eosinophils (%) (Auto) 12H, Basophils (%) (Auto) 1, Neutrophils # (Auto) 5.2, Lymphocytes # (Auto) 1.8, Monocytes # (Auto) 0.5, Eosinophils # (Auto) 1.1H, Basophils # (Auto) 0.1, Immature Granulocyte # (Auto) 0.0, Erythrocyte Sedimentation Rate 39H, Prothrombin Time 14.4, INR Comment 1.1, Activated Partial Thromboplast Time 41H, D-Dimer 0.42, Sodium Level 142, Potassium Level 3.4L, Chloride Level 104, Carbon Dioxide Level 23, Anion Gap 15H, Blood Urea Nitrogen 29H, Creatinine 1.41H, Estimat Glomerular Filtration Rate 59, BUN/Creatinine Ratio 21, Glucose Level 141H, Calcium Level 9.5, Corrected Calcium 9.5, Magnesium Level 1.7, Total Bilirubin 0.5, Aspartate Amino Transf (AST/SGOT) 24, Alanine Aminotransferase (ALT/SGPT) 34, Alkaline Phosphatase 103, Total Creatine Kinase 304H, Creatine Kinase MB 11.5*H, Myoglobin 148.3H, Troponin I 0.043H, C-Reactive Protein High Sensitivity 2.89H, B-Type Natriuretic Peptide < 10.0, Total Protein 8.2, Albumin 4.0, Procalcitonin 0.09 05/11/22 08:01: Troponin I 0.047H 05/11/22 12:10: Troponin I 0.044H A/P-Cardiology Assessment/Admission Diagnosis Progressive KELLY Chest discomfort - undetermined etiology - minimally elevated troponin (chronically minimal elevation since Jul 2020) Echocardiogram of 04-26-[address] Medina showed LVEF 55-690%. PASP 35-40 mmHg H/O asthma HTN - maintained on Losartan/HCTZ Arthritis Discussion and Recomendations Progressive KELLY with non-specific chest discomfort of undetermined etiology Chronic minimal troponin elevation since 2019 Advise MPI to eval perfusion Management of ? asthma exacerbation per medical services Stop Losartan d/t CKD 2 Start BB Hypokalemia likely d/t chronic diuretic use (HCTZ) - advise cessation of HCTZ d/t normal LVEF on recent echocardiogram and no evidence of swelling Replace electrolytes Monitor lab closely Further recs will be based on his hospital course We would like to thank Dr. Solorio for this consult CUCO CONTRERAS MD FACP FACC CCDS May 11, 2022 18:25
[2022-05-11] MEDS: predniSONE 20 MG TAB PO SCH (19:05)
[2022-05-11 20:00] VITALS: BP 134/74
[2022-05-11] MEDS ORDERED: ENOXAPARIN 40 MG/0.4 ML (LOVENOX) SYR SQ SCH (21:30)
[2022-05-11] MEDS: RT-ALBUTEROL SULF 2.5 MG/3 ML PRE-MIX VIAL INH SCH (23:30)
[2022-05-11] MEDS: RT--FLUTICASONE/SALMETEROL 113-14 (AIRDUO RespiCLICK) IH SCH (23:31)
[2022-05-12] VITALS: BP 142/78
[2022-05-12 04:00] VITALS: BP 144/84
[2022-05-12 05:56] LABS: BASOPHILS % (AUTO) 0 % (0-10); EOSINOPHILS % (AUTO) 0 % (0-10); HEMATOCRIT 43 % (40-54); HEMOGLOBIN 14.6 g/dL (13.3-17.7); LYMPHOCYTES # (AUTO) 0.9 10^3/uL (1.0-4.0); LYMPHOCYTES % (AUTO) 6 % (12-44); MEAN CORPUSCULAR HEMOGLOBIN 30 pg (25-34); MEAN CORPUSCULAR HGB CONC 34 g/dL (32-36); MEAN CORPUSCULAR VOLUME 87 fL (80-99); MEAN PLATELET VOLUME 9.2 fL (9.0-12.2); MONOCYTES # (AUTO) 0.3 10^3/uL (0.0-1.0); MONOCYTES % (AUTO) 2 % (0-12); NEUTROPHILS # (AUTO) 13.3 10^3/uL (1.8-7.8); NEUTROPHILS % (AUTO) 91 % (42-75); PLATELET COUNT 198 10^3/uL (130-400); WHITE BLOOD COUNT 14.6 10^3/uL (4.3-11.0)
[2022-05-12 06:09] LABS: POTASSIUM 3.7 MMOL/L (3.6-5.0)
[2022-05-12 06:10] LABS: CALCIUM 9.5 MG/DL (8.5-10.1)
[2022-05-12 06:14] LABS: CREATININE SERUM 1.28 MG/DL (0.60-1.30)
[2022-05-12 06:16] LABS: MAGNESIUM 1.8 MG/DL (1.6-2.4)
[2022-05-12 06:36] LABS: BAND NEUTROPHILS 2 %; LYMPHOCYTES % (MANUAL) 6 %; MONOCYTES % (MANUAL) 1 %; NEUTROPHILS % (MANUAL) 91 %; RBC MORPH NORMAL
[2022-05-12] MEDS ORDERED: CATHETER FLUSH 10 ML SYR IVP PRN (07:45)
[2022-05-12 07:47] VITALS: BP 134/89
[2022-05-12] MEDS ORDERED: LOSARTAN 100 MG (COZAAR) TABLET PO SCH (09:00)
[2022-05-12] MEDS ORDERED: REGADENOSON 0.4 MG/5 ML SYR (LEXISCAN) IV ONE (09:12)
[2022-05-12] MEDS: RT--FLUTICASONE/SALMETEROL 113-14 (AIRDUO RespiCLICK) IH SCH (09:36)
[2022-05-12] MEDS: RT-ALBUTEROL SULF 2.5 MG/3 ML PRE-MIX VIAL INH SCH (09:36)
--- NOTE | 2022-05-12 10:26 | Progress Note - Cardiology ---
Cardiology SOAP Progress Note Subjective: No further c/o CP No c/o SOB, palpitations, syncope or near syncope Objective: I&O/Vital Signs 05/11/22 05/12/22 05/12/22 05/12/22 23:32 00:00 00:00 01:00 Temp 36.8 Pulse 126 70 Resp 24 B/P (MAP) 142/78 (99) Pulse Ox 96 93 O2 Delivery Room Air Room Air 05/12/22 05/12/22 05/12/22 05/12/22 04:00 04:00 07:00 07:47 Temp 36.5 36.4 Pulse 74 86 82 Resp 16 16 B/P (MAP) 144/84 (104) 134/89 (102) Pulse Ox 95 95 O2 Delivery Room Air Room Air 05/12/22 08:13 Pulse Ox 95 O2 Delivery Room Air 05/12/22 00:00 Intake Total 1300 ml Output Total 600 ml Balance 700 ml Weight (Pounds): 212 Weight (Calculated Kilograms): 96.074673 Constitutional: AAO x 3, well-developed, well-nourished Respiratory: No accessory muscle use, No respiratory distress; chest expansion is symmetric, chest is bilaterally symmetric, lungs clear to auscultation Cardiovascular: regular rate-rhythm; No JVD; S1 and S2 Gastrointestional: No tender; soft, round, audible bowel sounds Extremities: no lower extremity edema bilateral Neurologic/Psychiatric: grossly intact (moves all extremities) Skin: No rash on exposed areas, No ulcerations on exposed areas Results/Procedures: Labs Laboratory Tests 05/11/22 12:10: Troponin I 0.044H 05/12/22 05:30: White Blood Count 14.6H, Red Blood Count 4.93, Hemoglobin 14.6, Hematocrit 43, Mean Corpuscular Volume 87, Mean Corpuscular Hemoglobin 30, Mean Corpuscular Hemoglobin Concent 34, Red Cell Distribution Width 13.1, Platelet Count 198, Mean Platelet Volume 9.2, Immature Granulocyte % (Auto) 1, Neutrophils (%) (Auto) 91H, Lymphocytes (%) (Auto) 6L, Monocytes (%) (Auto) 2, Eosinophils (%) (Auto) 0, Basophils (%) (Auto) 0, Neutrophils # (Auto) 13.3H, Lymphocytes # (Auto) 0.9L, Monocytes # (Auto) 0.3, Eosinophils # (Auto) 0.0, Basophils # (Auto) 0.0, Immature Granulocyte # (Auto) 0.1, Neutrophils % (Manual) 91, Lymphocytes % (Manual) 6, Monocytes % (Manual) 1, Band Neutrophils 2, Blood Morphology Comment NORMAL, Sodium Level 139, Potassium Level 3.7, Chloride Level 104, Carbon Dioxide Level 20L, Anion Gap 15H, Blood Urea Nitrogen 30H, Creatinine 1.28, Estimat Glomerular Filtration Rate 67, BUN/Creatinine Ratio 23, Glucose Level 147H, Calcium Level 9.5, Magnesium Level 1.8 Laboratory Tests 05/11/22 04:56 05/12/22 05:30 A/P: Assessment: Progressive KELLY Chest discomfort - undetermined etiology - minimally elevated troponin (chronically minimal elevation since Jul 2020) Echocardiogram of 04-26-[address] Medina showed LVEF 55-690%. PASP 35-40 mmHg H/O asthma HTN - maintained on Losartan/HCTZ Arthritis Plan: Progressive KELLY with non-specific chest discomfort of undetermined etiology - resolved Chronic minimal troponin elevation since 2019 Advise MPI to eval perfusion - results pending Hypokalemia likely d/t chronic diuretic use (HCTZ) - advise cessation of HCTZ d/t normal LVEF on recent echocardiogram and no evidence of swelling Monitor lab closely NORRIS TYSON May 12, 2022 10:26
[2022-05-12] MEDS: predniSONE 20 MG TAB PO SCH (11:27)
[2022-05-12] MEDS: meTOproloL SUCCINATE 50 MG (TOPROL XL) TAB PO SCH (11:28)
[2022-05-12 11:42] VITALS: BP 116/76
--- NOTE | 2022-05-12 11:49 | Diagnostic Imaging Report ---
PROCEDURE: US Renal Bilateral. TECHNIQUE: Multiple real-time grayscale images were obtained over the kidneys in various projections bilaterally. INDICATION: Chronic kidney disease. FINDINGS: Right kidney measures 10.8 x 4.4 x 5.7 cm and left kidney measures 10.3 x 4.8 x 4.7 cm. Cortical thickness and echogenicity is normal. No calculi are seen. There is no hydronephrosis. There does appear to be an approximately 18 mm cyst in the lower pole of the left kidney. Bilateral ureteral jets were visualized in the urinary bladder. IMPRESSION: 1. Small left renal cyst. The study is otherwise unremarkable. No hydronephrosis is detected. Dictated by: Dictated on workstation # [id number]
[2022-05-12] MEDS ORDERED: PRD20T PO (13:37)
--- NOTE | 2022-05-12 13:41 | Discharge Summary ---
Discharge Summary Hospital Course Problems/Diagnosis: (1) Asthma exacerbation Status: Acute Assessment & Plan: Continue albuterol, inhaled steroid/LABA and systemic steroid Qualifiers: Qualified Codes: J45.41 - Moderate persistent asthma with (acute) exacerbation (2) Elevation of cardiac enzymes Status: Chronic Assessment & Plan: Mild elevation of troponin chronic, unclear etiology, given family history and age, history of smoking, concerning for underlying cardiac issue, Cardiology consulted and stress test done. (3) Hypertension Status: Chronic Assessment & Plan: Resume home med (4) Kidney insufficiency Status: Acute Assessment & Plan: Uncertain baseline, appears to have trending up creatinine over last year or so, but he is not aware of CKD diagnosis in the past. Review of clinic chart shows Cr 1.50 on 04/14/22. Suspect CKD. 05/12 renal US showed small left renal cyst, no significant abnormalities and creatinine was 1.28 at discharge. (5) Shortness of breath Status: Chronic Assessment & Plan: On review of clinic chart, patient reported shortness of breath ever since COVID infection in 2019. CXR done 04/14/22 in clinic showed prominence of left hilum and suprahilar region iwth presence of possible mass. CT done to follow up on 04/18/22 showed dilated main pulmonary artery and marked enlargement of left main pulmonary artery, evaluation for possible pulmonic valve stenosis was recommended and lungs showed mild pleural thickening and minimal scarring in lung bases possibly on post-COVID basis. Echo was done 04/26/22 and showed EF 55-60%, concentric hypertrophy, PA pressure 35-40. Pulmonic valve was not well seen. Hospital Course Date of Admission: May 11, 2022 at 06:15 Admission Diagnosis : Family Physician/Provider: Milagro Romero Aprn Date of Discharge: 05/12/22 Discharge Diagnosis: See problem list Hospital Course: See problem list Labs and Pending Lab Test: Laboratory Tests 05/12/22 05:30: White Blood Count 14.6H, Red Blood Count 4.93, Hemoglobin 14.6, Hematocrit 43, Mean Corpuscular Volume 87, Mean Corpuscular Hemoglobin 30, Mean Corpuscular Hemoglobin Concent 34, Red Cell Distribution Width 13.1, Platelet Count 198, Mean Platelet Volume 9.2, Immature Granulocyte % (Auto) 1, Neutrophils (%) (Auto) 91H, Lymphocytes (%) (Auto) 6L, Monocytes (%) (Auto) 2, Eosinophils (%) (Auto) 0, Basophils (%) (Auto) 0, Neutrophils # (Auto) 13.3H, Lymphocytes # (Auto) 0.9L, Monocytes # (Auto) 0.3, Eosinophils # (Auto) 0.0, Basophils # (Auto) 0.0, Immature Granulocyte # (Auto) 0.1, Neutrophils % (Manual) 91, Lymphocytes % (Manual) 6, Monocytes % (Manual) 1, Band Neutrophils 2, Blood Morphology Comment NORMAL, Sodium Level 139, Potassium Level 3.7, Chloride Level 104, Carbon Dioxide Level 20L, Anion Gap 15H, Blood Urea Nitrogen 30H, Creatinine 1.28, Estimat Glomerular Filtration Rate 67, BUN/Creatinine Ratio 23, Glucose Level 147H, Calcium Level 9.5, Magnesium Level 1.8 Home Meds Active Prednisone 20 Mg Tab 40 Mg PO DAILY@0700 4 Days Reported Symbicort 160-4.5 Mcg Inhaler (Budesonide/Formoterol Fumarate) 160 Mcg-4.5 Mcg/Actuation Hfa.aer.ad 2 Puff IH BID Proair Hfa (Albuterol Sulfate) 1 Puff Puff 2 Puff IH Q4H PRN Losartan-Hctz 100-25 mg Tab (Losartan/Hydrochlorothiazide) 100 Mg-25 Mg Tablet 1 Each PO DAILY Tylenol Arthritis (Acetaminophen) 650 Mg Tablet.er 1,300 Mg PO Q6H PRN Assessment/Pt DC Instructions Follow up with primary provider within a week of discharge. Discharge Diet: Regular Diet Activity as Tolerated: Yes Discharge Physical Examination Allergies: Uncoded Allergies: ENVIRONMENTAL (Allergy, Unknown, 07/24/15) General Appearance: No Apparent Distress, WD/WN Respiratory: No Accessory Muscle Use, No Respiratory Distress, Wheezing (end expiratory) Cardiovascular: Regular Rate, Rhythm, No Murmur Extremity: No Pedal Edema Skin: Warm/Dry Neurologic/Psychiatric: Alert, Normal Mood/Affect XI DUMONT MD May 12, 2022 13:41
--- NOTE | 2022-05-12 15:55 | STRESS TEST ---
DATE OF SERVICE: 05/12/2022 RESTING AND POST REGADENOSON TECHNETIUM-99M TETROFOSMIN SPECT CT IMAGING ORDERING PHYSICIAN: Melinda Short APRN. PRIMARY PHYSICIAN: [facility]. CLINICAL DIAGNOSIS: Shortness of breath. Baseline images were carried out after injection of 10.22 mCi of technetium-99m Tetrofosmin. This was followed by 0.4 mg Regadenoson and 27.3 mCi of technetium-99m Tetrofosmin for stress imaging. The electrocardiogram showed sinus rhythm at baseline. It did not change significantly with the Regadenoson infusion. The patient tolerated the procedure well. Review of images at rest and following stress does not indicate any significant perfusion defects consistent with myocardial ischemia or infarction. Gated images show normal global left ventricular systolic function with normal regional wall motion. Left ventricular ejection fraction is calculated to be 75%. Left ventricular end-diastolic volume is 71 mL. TID is absent (1.02). CONCLUSIONS: 1. No evidence of any significant myocardial ischemia or infarction on this study. 2. Normal regional wall motion. 3. Normal global left ventricular systolic function with a calculated ejection fraction of 75%. Job ID: [id number] DocumentID: [id number] Dictated Date: 05/12/2022 12:46:44 [place] Date: 05/12/2022 15:54:36 Dictated By: CUCO CONTRERAS MD, MA, FACP, FACC,
[2022-05-12] MEDS ORDERED: ENOXAPARIN 40 MG/0.4 ML (LOVENOX) SYR SQ SCH (21:00)
== END 2022-05-12 14:30 ==
LOC: EDUNIT# 04:28 → ER 04:31 → CSD 06:15
PROVIDERS: ADMIT Family Medicine; ATTEND Family Medicine
DX: J45.41 Moderate persistent asthma with (acute) exacerbation (principal); I12.9 Hypertensive chronic kidney disease with stage 1 through stage 4 chronic kidney disease, or unspecified chronic kidney disease; N18.9 Chronic kidney disease, unspecified; Z87.891 Personal history of nicotine dependence
CPT/HCPCS: 71045; 76770; 78452; 80048; 80053; 82550; 82553; 83735 ×2; 83874; 83880; 84145; 84484; 85007; 85025; 85027; 85379; 85610; 85652; 85730; 86141; 87636; 93005; 93017; 94760; 96376; 99283; A9502; G0378; 36415; 96374

== ENCOUNTER 2022-06-06 00:24 | Emergency (ER) | payer SELFPAY ==
[~2022-06-06 00:24] MED LIST changes: +ACET-2650 PO; +BUDE10.2 IH; +LOSA1TAB23 PO; +RT-ALBUINH IH
--- NOTE | 2022-06-06 00:53 | ED Upper Extremity ---
General Chief Complaint: Upper Extremity Stated Complaint: GOUT-LEFT ELBOW Source: patient History of Present Illness Date Seen by Provider: Jun 06, 2022 Time Seen by Provider: 00:42 Initial Comments PT ARRIVES VIA POV C/O LEFT ELBOW PAIN, REDNESS AND SWELLING SINCE Sunday06/03/22 NO INJURY NO FEVER AT HOME, BUT TEMP WAS 99 TODAY AT CLINIC. COVID TEST WAS NEGATIVE AT THE CLINIC. NO OTHER COVID SYMPTOMS SEEN AT [facility] TODAY, AND DX WITH GOUT--NO TESTS OF ANY KIND WERE DONE. P RESCRIBED COLCHICINE--TOOK 1.2 MG, THEN 0.6 MG AN HOUR LATER WITHOUT RELIEF. PT HAS BEEN DX WITH GOUT IN THE PAST--ONLY HAS HAD IT IN HIS FEET IN THE PAST, NEVER IN HIS ELBOW/ARMS. HAS FLARE UP ABOUT ONCE A YEAR PT CURRENTLY TAKES INHALERS FOR ASTHMA AND LOSARTAN / HCTZ FOR HTN PT WAS ADMITTED 05/11-05/12 FOR ASTHMA EXACERBATION, DISMISSED WITH PREDNISONE 40 MG X 4 DAYS NOT HAVING RESPIRATORY SYMPTOMS AT THIS TIME PCP: [facility] Allergies and Home Medications Allergies Uncoded Allergies: ENVIRONMENTAL (Allergy, Unknown, 07/24/15) Patient Home Medication List Acetaminophen (Tylenol Arthritis) 650 Mg Tablet.er, 1,300 MG PO Q6H PRN for PAIN-MILD (1-4), (Reported) Entered as Reported by: WILLIE BRADSHAW on 05/11/22 1540 Albuterol Sulfate (Proair Hfa) 1 Puff Puff, 2 PUFF IH Q4H PRN for SHORTNESS OF BREATH, (Reported) Entered as Reported by: WILLIE BRADSHAW on 05/11/22 1540 Budesonide/Formoterol Fumarate (Symbicort 160-4.5 Mcg Inhaler) 160 Mcg-4.5 Mcg/Actuation Hfa.aer.ad, 2 PUFF IH BID, (Reported) Entered as Reported by: WILLIE BRADSHAW on 05/11/22 1540 Losartan/Hydrochlorothiazide (Losartan-Hctz 100-25 mg Tab) 100 Mg-25 Mg Tablet, 1 EACH PO DAILY, (Reported) Entered as Reported by: WILLIE BRADSHAW on 05/11/22 1540 Prednisone (Prednisone) 20 Mg Tab, 40 MG PO DAILY@0700 Prescribed by: XI DUMONT on 05/12/22 1337 Review of Systems Constitutional: see HPI Respiratory: no symptoms reported Cardiovascular: no symptoms reported Gastrointestinal: no symptoms reported Genitourinary: no symptoms reported Musculoskeletal: see HPI Skin: see HPI Psychiatric/Neurological: No Symptoms Reported Past [id number] Hx Patient Social History Tobacco Use?: Yes Tobacco type used: Cigarettes Smoking Status: Former Smoker Substance use?: No Alcohol Use?: No Immunizations Up To Date Tetanus Booster (TDap): Unknown First/Initial COVID19 Vaccinat: unknown date Second COVID19 Vaccination Conrad: unknown date Third COVID19 Vaccination Date: unknown date Seasonal Allergies Seasonal Allergies: No Past Medical History Surgery/Hospitalization HX: MED HX: HTN Surgeries: No Respiratory: Yes Asthma Cardiac: Yes (BASELINE TROPONIN 0.04-0.05) Hypertension Neurological: No Reproductive Disorders: No Sexually Transmitted Disease: No Genitourinary: No Gastrointestinal: No Musculoskeletal: No Endocrine: No HEENT: No Cancer: No Psychosocial: No Integumentary: No Blood Disorders: No Family Medical History Heart Disease, Diabetes, Hypertension SOCIAL HISTORY: -SMOKED 1 PPD, QUIT 10 YEARS AGO -DENIES ETOH USE -DENIES DRUG USE Physical Exam Vital Signs Capillary Refill : Height, Weight, BMI Height: 5'4" Weight: 212lbs. oz. 96.426558ww; 29.90 BMI Method: General Appearance: WD/WN, no apparent distress, other (HOLDING LEFT ELBOW FLEXED AT ELBOW AND HELD AGAINST BODY. ) Cardiovascular: normal peripheral pulses, regular rate, rhythm, no murmur Respiratory: normal breath sounds Shoulder: normal inspection Elbow/Forearm: Left (ERYTHEMA AND WARMTH TO ELBOW. ), bone tenderness, limited ROM, pain, soft tissue tenderness, swelling Wrist: Yes normal inspection Hand: normal inspection Neurologic/Tendon: normal sensation, normal motor functions, normal tendon fun ctions Neurologic/Psychiatric: director of photography II-XII nml as tested, no motor/sensory deficits, alert, normal mood/affect, oriented x 3 Skin: normal color (PT IS DARK SKINNED), warm/dry, other ( ABOVE) Progress/Results/Core Measures Results/Orders Lab Results Laboratory Tests Test 06/06/22 01:18 Range/Units White Blood Count 9.9 4.3-11.0 10^3/uL Red Blood Count 5.01 4.30-5.52 10^6/uL Hemoglobin 15.0 13.3-17.7 g/dL Hematocrit 43 40-54 % Mean Corpuscular Volume 87 80-99 fL Mean Corpuscular Hemoglobin 30 25-34 pg Mean Corpuscular Hemoglobin Concent 35 32-36 g/dL Red Cell Distribution Width 13.8 10.0-14.5 % Platelet Count 176 130-400 10^3/uL Mean Platelet Volume 8.3 L 9.0-12.2 fL Immature Granulocyte % (Auto) 0 % Neutrophils (%) (Auto) 67 42-75 % Lymphocytes (%) (Auto) 16 12-44 % Monocytes (%) (Auto) 12 0-12 % Eosinophils (%) (Auto) 4 0-10 % Basophils (%) (Auto) 1 0-10 % Neutrophils # (Auto) 6.7 1.8-7.8 10^3/uL Lymphocytes # (Auto) 1.6 1.0-4.0 10^3/uL Monocytes # (Auto) 1.2 H 0.0-1.0 10^3/uL Eosinophils # (Auto) 0.4 H 0.0-0.3 10^3/uL Basophils # (Auto) 0.1 0.0-0.1 10^3/uL Immature Granulocyte # (Auto) 0.0 0.0-0.1 10^3/uL Erythrocyte Sedimentation Rate 36 H 0-30 MM/HR Sodium Level 137 135-145 MMOL/L Potassium Level 3.8 3.6-5.0 MMOL/L Chloride Level 105 98-107 MMOL/L Carbon Dioxide Level 20 L 21-32 MMOL/L Anion Gap 12 5-14 MMOL/L Blood Urea Nitrogen 12 7-18 MG/DL Creatinine 0.97 0.60-1.30 MG/DL Estimat Glomerular Filtration Rate 93 BUN/Creatinine Ratio 12 Glucose Level 101 70-105 MG/DL Uric Acid 5.4 2.6-7.2 MG/DL Calcium Level 9.0 8.5-10.1 MG/DL Corrected Calcium 9.1 8.5-10.1 MG/DL Total Bilirubin 1.1 H 0.1-1.0 MG/DL Aspartate Amino Transf (AST/SGOT) 21 5-34 U/L Alanine Aminotransferase (ALT/SGPT) 25 0-55 U/L Alkaline Phosphatase 88 40-136 U/L C-Reactive Protein High Sensitivity 8.03 H 0.00-0.50 MG/DL Total Protein 7.6 6.4-8.2 GM/DL Albumin 3.9 3.2-4.5 GM/DL My Orders Orders - ASPEN ANDERSON DO Ed Iv/Invasive Line Start (06/06/22 00:46) Elbow, Left, 3 Views (06/06/22 00:46) Cbc With Automated Diff (06/06/22 00:46) Comprehensive Metabolic Panel (06/06/22 00:46) Hs C Reactive Protein (06/06/22 00:46) Erythrocyte Sedimentation Rate (06/06/22 00:46) Uric Acid (06/06/22 00:46) Methylprednisolone Sod Succ (Solu-Medrol (06/06/22 01:00) Medications Given in ED Current Medications Medications Dose Ordered Sig/Verna Route Start Time Stop Time Status Last Admin Dose Admin Methylprednisolone Sodium Succinate 125 mg ONCE ONCE IVP 06/06/22 01:00 06/06/22 01:01 DC 06/06/22 01:16 125 MG Departure Impression Primary Impression: Pain and swelling of left elbow Disposition: 01 HOME, SELF-CARE Condition: Stable Departure-Patient Inst. Decision time for Depature: 02:04 Referrals: [facility] [place]) Primary Care Physician CY ALONZO APRN (Family) Primary Care Physician MAURICIO HOLLIDAY MD Patient Instructions: Swollen Joints (DC) Add. Discharge Instructions: CONTINUE CURRENT MEDICATIONS PRESCRIBED ICE TO AREA AT 20 MINUTE INTERVALS FOLLOW UP WITH DR. HOLLIDAY, ORTHOPEDIC SURGEON, IN 1-2 DAYS FOR FURTHER CARE--CALL IN THE MORNING TO SCHEDULE APPOINTMENT All discharge instructions reviewed with patient and/or family. Voiced understanding. Scripts Hydrocodone/Acetaminophen (Hydrocodone-Acetamin 5-325 mg) 5 Mg-325 Mg Tablet 1 EACH PO Q4-6 HOURS PRN for PAIN, #20 TAB Prov: ASPEN ANDERSON DO 06/06/22 Prednisone (Prednisone) 20 Mg Tab 40 MG PO DAILY, #6 TAB 0 Refills Prov: ASPEN ANDERSON DO 06/06/22 Clindamycin HCl (Clindamycin HCl) 300 Mg Capsule 300 MG PO QID for 10 Days, #40 CAP Prov: ASPEN ANDERSON DO 06/06/22 ASPEN ANDERSON DO Jun 06, 2022 00:53
[2022-06-06] MEDS ORDERED: methylPREDNISolone 125 MG (Solu-MEDROL) VIAL IVP ONE (01:00)
[2022-06-06 01:27] LABS: BASOPHILS # (AUTO) 0.1 10^3/uL (0.0-0.1); BASOPHILS % (AUTO) 1 % (0-10); EOSINOPHILS # (AUTO) 0.4 10^3/uL (0.0-0.3); EOSINOPHILS % (AUTO) 4 % (0-10); HEMATOCRIT 43 % (40-54); LYMPHOCYTES # (AUTO) 1.6 10^3/uL (1.0-4.0); LYMPHOCYTES % (AUTO) 16 % (12-44); MEAN CORPUSCULAR HEMOGLOBIN 30 pg (25-34); MEAN CORPUSCULAR HGB CONC 35 g/dL (32-36); MEAN CORPUSCULAR VOLUME 87 fL (80-99); MEAN PLATELET VOLUME 8.3 fL (9.0-12.2); MONOCYTES # (AUTO) 1.2 10^3/uL (0.0-1.0); MONOCYTES % (AUTO) 12 % (0-12); NEUTROPHILS # (AUTO) 6.7 10^3/uL (1.8-7.8); NEUTROPHILS % (AUTO) 67 % (42-75); PLATELET COUNT 176 10^3/uL (130-400); WHITE BLOOD COUNT 9.9 10^3/uL (4.3-11.0)
[2022-06-06 01:33] LABS: ALBUMIN 3.9 GM/DL (3.2-4.5); POTASSIUM 3.8 MMOL/L (3.6-5.0)
[2022-06-06 01:36] LABS: TOTAL PROTEIN 7.6 GM/DL (6.4-8.2)
[2022-06-06 01:38] LABS: BILIRUBIN,TOTAL 1.1 MG/DL (0.1-1.0)
[2022-06-06 01:40] LABS: CREATININE SERUM 0.97 MG/DL (0.60-1.30)
[2022-06-06 01:43] LABS: URIC ACID 5.4 MG/DL (2.6-7.2)
[2022-06-06 01:51] LABS: ERYTHROCYTE SEDIMENTATION RATE 36 MM/HR (0-30)
[2022-06-06] MEDS ORDERED: ACHD5005 PO (02:06)
[2022-06-06] MEDS ORDERED: PRD20T PO (02:06)
[2022-06-06] MEDS ORDERED: CLIN-144 PO (02:06)
[2022-06-06] MEDS ORDERED: CLINDAMYCIN 900 MG/50 ML IVPB 50 ML IV ONE (02:15)
--- NOTE | 2022-06-06 06:41 | Diagnostic Imaging Report ---
Indication: Left elbow pain. FINDINGS: 3 views. There is degenerative change with subcortical cystic findings along the capitellum. The radius and ulna are intact with good alignment. Articulating surfaces are smooth. No fractures. There is moderate joint effusion present. 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 Joint effusion. No fractures demonstrated. Dictated by: Dictated on workstation # [id number]
== END 2022-06-06 02:47 | disposition home or self-care (01) ==
LOC: EDUNIT# 00:24 → ER 00:29
DX: M25.422 Effusion, left elbow (principal); I10 Essential (primary) hypertension; J45.909 Unspecified asthma, uncomplicated; Z87.891 Personal history of nicotine dependence; Z87.39 Personal history of other diseases of the musculoskeletal system and connective tissue; Z79.51 Long term (current) use of inhaled steroids; Z79.899 Other long term (current) drug therapy
CPT/HCPCS: 36415; 73080; 80053; 84550; 85025; 85652; 86141

== ENCOUNTER 2022-07-14 13:21 | Emergency (ER) | payer SELFPAY ==
[~2022-07-14] VITALS: Ht 167 cm; Wt 81.6 kg
[~2022-07-14 13:21] MED LIST changes: +ACHD5005 PO; +CLIN-144 PO
--- NOTE | 2022-07-14 13:37 | ED Chest Pain ---
General Chief Complaint: Chest Pain Stated Complaint: CHEST TIGHTNESS Source: patient Exam Limitations: no limitations History of Present Illness Date Seen by Provider: Jul 14, 2022 Time Seen by Provider: 13:24 Initial Comments Patient is a 56-year-old male who presents to the emergency department today with a chief complaint of chest "tightness". He states its been happening off and on for the last 3 days. He only gets it when he coughs. He does feel little short of breath with the pain. He is not having any pain right now at all. Nothing makes the pain any better or worse. He has not taken anything for the pain. He states that he had this about 3 months ago and was seen and evaluated here at [facility] and had a stress test. He cannot recall any results or plan of care afterwards. He did used to smoke. No drugs or alcohol. No recent illnesses, fevers, chills, URI. His cough is nonproductive. He is COVID vaccinated with a booster. No nausea or radiation of the pain. No family history of cardiac disease and patient's near his age. Again he is asymptomatic currently. All other review of systems reviewed and negative except as stated. Timing/Duration: 2-3 days Severity/Quality: tightness Location: substernal Radiation: no radiation Activities at Onset: none Prior CP/Workup: stress test ASA po PHLEBOTOMY SUPPORT TECH: Yes NTG SL PHLEBOTOMY SUPPORT TECH: No Associated Symptoms: shortness of breath (cough) Allergies and Home Medications Allergies Uncoded Allergies: ENVIRONMENTAL (Allergy, Unknown, 07/24/15) Patient Home Medication List Home Medication List Reviewed: Yes Acetaminophen (Tylenol Arthritis) 650 Mg Tablet.er, 1,300 MG PO Q6H PRN for PAIN-MILD (1-4), (Reported) Entered as Reported by: WILLIE BRADSHAW on 05/11/22 154 Albuterol Sulfate (Proair Hfa) 1 Puff Puff, 2 PUFF IH Q4H PRN for SHORTNESS OF BREATH, (Reported) Entered as Reported by: WILLIE BRADSHAW on 05/11/221539 Budesonide/Formoterol Fumarate (Symbicort 160-4.5 Mcg Inhaler) 160 Mcg-4.5 Mcg/Actuation Hfa.aer.ad, 2 PUFF IH BID, (Reported) Entered as Reported by: WILLIE BRADSHAW on 05/11/22 1540 Clindamycin HCl (Clindamycin HCl) 300 Mg Capsule, 300 MG PO QID Prescribed by: ASPEN ANDERSON on 06/06/22 0206 Hydrocodone/Acetaminophen (Hydrocodone-Acetamin 5-325 mg) 5 Mg-325 Mg Tablet, 1 EACH PO Q4-6 HOURS PRN for PAIN Prescribed by: ASPEN ANDERSON on 06/06/22 0206 Losartan/Hydrochlorothiazide (Losartan-Hctz 100-25 mg Tab) 100 Mg-25 Mg Tablet, 1 EACH PO DAILY, (Reported) Entered as Reported by: WILLIE BRADSHAW on 05/11/22 1540 Prednisone (Prednisone) 20 Mg Tab, 40 MG PO DAILY@0700 Prescribed by: XI DUMONT on 05/12/22 1337 Prednisone (Prednisone) 20 Mg Tab, 40 MG PO DAILY Prescribed by: ASPEN ANDERSON on 06/06/22 0206 Review of Systems Review of Systems Constitutional: see HPI EENTM: No Symptoms Reported Respiratory: Cough, SOA at Rest Cardiovascular: Chest Pain Gastrointestinal: No Symptoms Reported Musculoskeletal: no symptoms reported Skin: no symptoms reported Psychiatric/Neurological: No Symptoms Reported All Other Systems Reviewed Negative Unless Noted: Yes Past Zsiubzl-Gsluyw-Htejyk Hx Patient Social History Tobacco Use?: No Substance use?: No Alcohol Use?: No Pt feels they are or have been: No Immunizations Up To Date Tetanus Booster (TDap): Unknown First/Initial COVID19 Vaccinat: unknown date Second COVID19 Vaccination Conrad: unknown date Third COVID19 Vaccination Date: unknown date Seasonal Allergies Seasonal Allergies: No Past Medical History Surgery/Hospitalization HX: MED HX: HTN Surgeries: No Respiratory: Yes Asthma Cardiac: Yes (BASELINE TROPONIN 0.04-0.05) Hypertension Neurological: No Reproductive Disorders: No Sexually Transmitted Disease: No Genitourinary: No Gastrointestinal: No Musculoskeletal: No Endocrine: No HEENT: No Cancer: No Psychosocial: No Integumentary: No Blood Disorders: No Family Medical History Heart Disease, Diabetes, Hypertension SOCIAL HISTORY: -SMOKED 1 PPD, QUIT 10 YEARS AGO -DENIES ETOH USE -DENIES DRUG USE Physical Exam Vital Signs Vital Signs - First Documented 07/14/22 13:30 Temp 36.6 Pulse 68 Resp 18 B/P (MAP) 169/116 (133) Pulse Ox 98 Capillary Refill : Less Than 3 Seconds Height, Weight, BMI Height: 5'4" Weight: 212lbs. oz. 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 Norm as Tested Skin: Normal Color, Warm/Dry Progress/Results/Core Measures Results/Orders Lab Results Laboratory Tests Test 07/14/22 13:30 Range/Units White Blood Count 7.4 4.3-11.0 10^3/uL Red Blood Count 4.93 4.30-5.52 10^6/uL Hemoglobin 14.8 13.3-17.7 g/dL Hematocrit 44 40-54 % Mean Corpuscular Volume 89 80-99 fL Mean Corpuscular Hemoglobin 30 25-34 pg Mean Corpuscular Hemoglobin Concent 34 32-36 g/dL Red Cell Distribution Width 13.1 10.0-14.5 % Platelet Count 211 130-400 10^3/uL Mean Platelet Volume 8.6 L 9.0-12.2 fL Immature Granulocyte % (Auto) 0 % Neutrophils (%) (Auto) 42 42-75 % Lymphocytes (%) (Auto) 24 12-44 % Monocytes (%) (Auto) 7 0-12 % Eosinophils (%) (Auto) 26 H 0-10 % Basophils (%) (Auto) 1 0-10 % Neutrophils # (Auto) 3.1 1.8-7.8 10^3/uL Lymphocytes # (Auto) 1.8 1.0-4.0 10^3/uL Monocytes # (Auto) 0.5 0.0-1.0 10^3/uL Eosinophils # (Auto) 1.9 H 0.0-0.3 10^3/uL Basophils # (Auto) 0.1 0.0-0.1 10^3/uL Immature Granulocyte # (Auto) 0.0 0.0-0.1 10^3/uL Neutrophils % (Manual) 41 % Lymphocytes % (Manual) 22 % Monocytes % (Manual) 8 % Eosinophils % (Manual) 28 % Basophils % (Manual) 0 % Band Neutrophils 1 % Blood Morphology Comment NORMAL Prothrombin Time 13.6 12.2-14.7 SEC INR Comment 1.0 0.8-1.4 Activated Partial Thromboplast Time 39 H 24-35 SEC Sodium Level 139 135-145 MMOL/L Potassium Level 4.0 3.6-5.0 MMOL/L Chloride Level 104 98-107 MMOL/L Carbon Dioxide Level 26 21-32 MMOL/L Anion Gap 9 5-14 MMOL/L Blood Urea Nitrogen 18 7-18 MG/DL Creatinine 1.12 0.60-1.30 MG/DL Estimat Glomerular Filtration Rate 78 BUN/Creatinine Ratio 16 Glucose Level 89 70-105 MG/DL Calcium Level 9.5 8.5-10.1 MG/DL Corrected Calcium 9.4 8.5-10.1 MG/DL Magnesium Level 1.8 1.6-2.4 MG/DL Total Bilirubin 0.8 0.1-1.0 MG/DL Aspartate Amino Transf (AST/SGOT) 30 5-34 U/L Alanine Aminotransferase (ALT/SGPT) 32 0-55 U/L Alkaline Phosphatase 105 40-136 U/L Myoglobin 106.6 H 10.0-92.0 NG/ML Troponin I < 0.028 <0.028 NG/ML Total Protein 8.3 H 6.4-8.2 GM/DL Albumin 4.1 3.2-4.5 GM/DL My Orders Orders - ELLYN MORENO MD Ekg Tracing (07/14/22 13:24) Cbc With Automated Diff (07/14/22 13:37) Magnesium (07/14/22 13:37) Chest 1 View, Ap/Pa Only (07/14/22 13:37) Comprehensive Metabolic Panel (07/14/22 13:37) Myoglobin Serum (07/14/22 13:37) Protime With Inr (07/14/22 13:37) Partial Thromboplastin Time (07/14/22 13:37) O2 (07/14/22 13:37) Monitor-Rhythm Ecg Trace Only (07/14/22 13:37) Lipid Panel (07/15/22 06:00) Ed Iv/Invasive Line Start (07/14/22 13:37) Troponin I Min (07/14/22 13:37) Manual Differential (07/14/22 13:30) Vital Signs/I&O 07/14/22 13:30 Temp 36.6 Pulse 68 Resp 18 B/P (MAP) 169/116 (133) Pulse Ox 98 Progress Progress Note : Time: 15:13 Progress Note Patient has been resting comfortably throughout his ED visit. He has had no episodes of pain whatsoever while in the department. The patient normally has a chronically elevated troponin however today it is undetectable. Laboratory studies are also otherwise unremarkable/within normal limits. I did recommend that he follow-up with his primary care physician as well as Dr. Medina. I advised him that if he should have recurrence of chest pain especially pain that involves sweating, nausea vomiting or worsening shortness of breath that he needs to come back to the emergency room again for another evaluation. He is comfortable with the plan of care. All questions are sought and answered. Initial ECG Impression Date: Jul 14, 2022 Initial ECG Impression Time: 13:27 Initial ECG Rate: 70 Initial ECG Rhythm: Normal Sinus Initial ECG Intervals: Normal Initial ECG Impression: Nonspecific Changes Comment Q waves 1 and aVL; no ST elevation or depression Diagnostic Imaging Diagonstic Imaging: Xray Plain Films/CT/US/NM/MRI: chest Comments [facility]. [place], [place] NAME: MARLY PARRA Rory [employer] REC#: [id number] PT STATUS: REG ER : 1965 PHYSICIAN: ELLNY MORENO MD ADMIT DATE: 07/14/22/ER Draft Date of Exam:07/14/22 CHEST 1 VIEW, AP/PA ONLY INDICATION: Chest pain COMPARISON: 05/11/2022. FINDINGS: Single frontal view of the chest demonstrates normal heart size and pulmonary vascularity. The lungs are well aerated and clear. No large pleural effusion or pneumothorax is seen. The visualized osseous structures show no acute abnormalities. IMPRESSION: 1. No acute cardiopulmonary process. Dictated on workstation # [id number] Dict: 07/14/22 1402 Trans: 07/14/22 1404 [id number] Interpreted by: GRETA PARKS MD Electronically signed by: Departure Impression Primary Impression: Chest pain Qualified Codes: R07.9 - Chest pain, unspecified Disposition: 01 HOME, SELF-CARE Condition: Stable Departure-Patient Inst. Decision time for Depature: 14:34 Referrals: [facility]/ANNALISE (PCP) Primary Care Physician CY ALONZO APRN (Family) Primary Care Physician Patient Instructions: Chest Pain That Is Not Caused by the Heart (DC) Add. Discharge Instructions: Continue to take your daily medications as prescribed. You can take Tylenol or ibuprofen as needed for discomfort and Robitussin cough/cold medication as needed for cough. If you develop further chest pain that has associated nausea, vomiting, shortness of breath or sweating please come back to the emergency room for reevaluation. Follow-up with your primary care physician. Copy Copies To 1: [facility]/ELLYN AGUDELO MD Jul 14, 2022 13:37
[2022-07-14 13:45] LABS: BASOPHILS # (AUTO) 0.1 10^3/uL (0.0-0.1); BASOPHILS % (AUTO) 1 % (0-10); EOSINOPHILS # (AUTO) 1.9 10^3/uL (0.0-0.3); EOSINOPHILS % (AUTO) 26 % (0-10); HEMATOCRIT 44 % (40-54); HEMOGLOBIN 14.8 g/dL (13.3-17.7); LYMPHOCYTES # (AUTO) 1.8 10^3/uL (1.0-4.0); LYMPHOCYTES % (AUTO) 24 % (12-44); MEAN CORPUSCULAR HEMOGLOBIN 30 pg (25-34); MEAN CORPUSCULAR HGB CONC 34 g/dL (32-36); MEAN CORPUSCULAR VOLUME 89 fL (80-99); MEAN PLATELET VOLUME 8.6 fL (9.0-12.2); MONOCYTES # (AUTO) 0.5 10^3/uL (0.0-1.0); MONOCYTES % (AUTO) 7 % (0-12); NEUTROPHILS # (AUTO) 3.1 10^3/uL (1.8-7.8); NEUTROPHILS % (AUTO) 42 % (42-75); PLATELET COUNT 211 10^3/uL (130-400); WHITE BLOOD COUNT 7.4 10^3/uL (4.3-11.0)
[2022-07-14 13:52] LABS: PROTHROMBIN TIME PATIENT 13.6 SEC (12.2-14.7)
[2022-07-14 13:54] LABS: ALBUMIN 4.1 GM/DL (3.2-4.5)
[2022-07-14 13:55] LABS: CALCIUM 9.5 MG/DL (8.5-10.1)
[2022-07-14 13:57] LABS: TOTAL PROTEIN 8.3 GM/DL (6.4-8.2)
[2022-07-14 13:58] LABS: BILIRUBIN,TOTAL 0.8 MG/DL (0.1-1.0)
[2022-07-14 14:00] LABS: CREATININE SERUM 1.12 MG/DL (0.60-1.30)
[2022-07-14 14:03] LABS: MAGNESIUM 1.8 MG/DL (1.6-2.4)
--- NOTE | 2022-07-14 14:04 | Diagnostic Imaging Report ---
INDICATION: Chest pain COMPARISON: 05/11/2022. FINDINGS: Single frontal view of the chest demonstrates normal heart size and pulmonary vascularity. The lungs are well aerated and clear. No large pleural effusion or pneumothorax is seen. The visualized osseous structures show no acute abnormalities. IMPRESSION: 1. No acute cardiopulmonary process. Dictated by: Dictated on workstation # [id number]
[2022-07-14 14:46] LABS: BAND NEUTROPHILS 1 %; BASOPHILS % (MANUAL) 0 %; EOSINOPHILS % (MANUAL) 28 %; LYMPHOCYTES % (MANUAL) 22 %; MONOCYTES % (MANUAL) 8 %; NEUTROPHILS % (MANUAL) 41 %; RBC MORPH NORMAL
[2022-07-14 15:37] VITALS: BP 164/109
== END 2022-07-14 15:37 | disposition home or self-care (01) ==
LOC: EDUNIT# 13:21 → ER 13:24
DX: R07.89 Other chest pain (principal); R77.8 Other specified abnormalities of plasma proteins; Z87.891 Personal history of nicotine dependence
CPT/HCPCS: 36415; 71045; 80053; 83735; 83874; 84484; 85007; 85027; 85610; 85730; 93005; 93041

== ENCOUNTER → 2022-09-13 | Outpatient (CLI) | payer OTHER ==
[~2022-09-13] MED LIST changes: +ALBU8.5H6 IH; -RT-ALBUINH IH; +RT-ALBUTEROL SULF 2.5 MG/3 ML PRE-MIX VIAL INH ONE
== END ==
LOC: RT 12:12
PROVIDERS: ATTEND Nurse Practitioner Family
DX: J45.40 Moderate persistent asthma, uncomplicated (principal)
CPT/HCPCS: 94060; 94726; 94729